=== PATIENT | male | born 1950 | race Caucasian/White ===

== ENCOUNTER → 2017-03-09 12:50 | Outpatient (CLI) | payer BC, MEDICARE, SELFPAY ==
--- NOTE | 2017-03-09 12:53 | CT_ITS ---
STUDY: CT PELVIS WITH CONTRAST REASON FOR EXAM: Male, 66 years old. History of prostate cancer. This is a radiation treatment planning examination. Supine and prone imaging was obtained. RADIATION DOSAGE (If Supplied By Facility): CTDIvol = ( 24.22 ) mGy, DLP = ( 1976.98 ) mGycm TECHNIQUE: Transaxial imaging of the pelvis was performed without oral contrast. 100CC ml of Isovue 300 contrast was administered intravenously. Individualized dose optimization techniques were used for this CT. COMPARISON: Comparison is made with prior study dated January 09, 2017. FINDINGS: Normal urinary bladder. Metallic radiation seeds are seen within the prostate. Bilateral hydroceles larger on the left side. There is evidence of bilateral parapelvic renal cysts. Normal visualized small intestine. Normal visualized colon. There is no pelvic fluid. There is no pelvic lymphadenopathy or mass lesion. There is diffuse atherosclerotic calcification of the pelvic arteries. There is a 1.1 cm soft tissue nodule in the subcutaneous tissues in the left mid abdomen lateral to the umbilicus. There are degenerative changes of the visualized lumbar spine. CT/CT Pelvis W/WO Cont Therapy IMPRESSION: Metallic radiation seeds are seen within the prostate. Bilateral parapelvic renal cysts. Bilateral hydroceles larger on the left. Electronically Signed: Hugo Quintero MD at 15:33 EST Tel [phone], Service support ,
== END ==
PROVIDERS: Visit Provider Radiology Radiation Oncology
DX: C61 Malignant neoplasm of prostate (principal)
CPT/HCPCS: 51600; 72194; Q9965; Q9967

== ENCOUNTER → 2017-03-17 11:19 | Outpatient (CLI) | payer BC, MEDICARE, SELFPAY ==
[2017-03-17 12:20] LABS: Absolute Lymphocyte Count 1.89 X10^3/ul (0.83-4.51); Absolute Neutrophil Count 2.9 X10^3/uL (2.0-7.7); Basophil# 0.03 X10^3/uL; Basophil% 0.5 % (0-1); Eosinophil# 0.21 X10^3/uL; Eosinophils% 3.6 % (0-5); Hematocrit 38.2 % (40-54); Hemoglobin 13.6 g/dl (13.0-16.5); Lymphocyte # 1.89 X10^3/ul (4.0); Mean Corp Hgb Conc 35.6 g/gl (32-36); Mean Corpuscular Hgb 31.1 pg (27.0-32.0); Mean Corpuscular Volume 87.4 fL (80-94); Mean Platelet Vol. 10.2 fl (6.2-12.0); Monocyte# 0.87 X10^3/uL; Monocyte% 14.7 % (0-10); Platelet Count 177 K/mm3 (150-450); RBC Distribution Width CV 12.9 % (11.6-14.6); RBC Distribution Width SD 40.3 fl (35.1-43.9); Red Blood Count 4.37 M/mm3 (4.6-6.2); White Blood Count 5.9 K/mm3 (4.4-11.0)
[2017-03-17 12:40] LABS: POSITIVE COUNT NO; POSITIVE DIFFERENTIAL NO; POSITIVE MORPHOLOGY NO
== END ==
PROVIDERS: Visit Provider Radiology Radiation Oncology
DX: C61 Malignant neoplasm of prostate (principal)
CPT/HCPCS: 36415; 85025

== ENCOUNTER → 2017-04-04 11:12 | Outpatient (CLI) | payer BC, MEDICARE, SELFPAY ==
[2017-04-04 12:08] LABS: Absolute Lymphocyte Count 1.53 X10^3/ul (0.83-4.51); Absolute Neutrophil Count 3.1 X10^3/uL (2.0-7.7); Basophil# 0.04 X10^3/uL; Basophil% 0.7 % (0-1); Eosinophil# 0.24 X10^3/uL; Eosinophils% 4.2 % (0-5); Hematocrit 36.8 % (40-54); Hemoglobin 13.2 g/dl (13.0-16.5); Lymphocyte # 1.53 X10^3/ul (4.0); Lymphocyte % 26.8 % (19-41); Mean Corp Hgb Conc 35.9 g/gl (32-36); Mean Corpuscular Hgb 31.2 pg (27.0-32.0); Mean Platelet Vol. 9.9 fl (6.2-12.0); Monocyte# 0.82 X10^3/uL; Monocyte% 14.4 % (0-10); Neutrophil # 3.07 X10^3/uL (2.7-7.7); Neutrophil % 53.7 % (47-70); Platelet Count 164 K/mm3 (150-450); RBC Distribution Width CV 12.9 % (11.6-14.6); RBC Distribution Width SD 39.6 fl (35.1-43.9); Red Blood Count 4.23 M/mm3 (4.6-6.2); White Blood Count 5.7 K/mm3 (4.4-11.0)
[2017-04-04 12:22] LABS: POSITIVE COUNT NO; POSITIVE DIFFERENTIAL NO; POSITIVE MORPHOLOGY NO
== END ==
PROVIDERS: Visit Provider Radiology Radiation Oncology
DX: C61 Malignant neoplasm of prostate (principal)
CPT/HCPCS: 36415; 85025

== ENCOUNTER → 2017-04-25 09:59 | Outpatient (CLI) | payer BC, MEDICARE, SELFPAY ==
[2017-04-25 12:06] LABS: Absolute Lymphocyte Count 1.12 X10^3/ul (0.83-4.51); Absolute Neutrophil Count 4.3 X10^3/uL (2.0-7.7); Basophil# 0.01 X10^3/uL; Basophil% 0.2 % (0-1); Eosinophil# 0.02 X10^3/uL; Eosinophils% 0.3 % (0-5); Hematocrit 36.2 % (40-54); Hemoglobin 13.1 g/dl (13.0-16.5); Lymphocyte # 1.12 X10^3/ul (4.0); Lymphocyte % 18.8 % (19-41); Mean Corp Hgb Conc 36.2 g/gl (32-36); Mean Corpuscular Hgb 31.3 pg (27.0-32.0); Mean Corpuscular Volume 86.6 fL (80-94); Mean Platelet Vol. 9.7 fl (6.2-12.0); Monocyte# 0.54 X10^3/uL; Neutrophil # 4.27 X10^3/uL (2.7-7.7); Neutrophil % 71.5 % (47-70); Platelet Count 198 K/mm3 (150-450); RBC Distribution Width CV 12.5 % (11.6-14.6); RBC Distribution Width SD 38.6 fl (35.1-43.9); Red Blood Count 4.18 M/mm3 (4.6-6.2)
[2017-04-25 12:12] LABS: POSITIVE COUNT NO; POSITIVE DIFFERENTIAL NO; POSITIVE MORPHOLOGY NO
== END ==
PROVIDERS: Visit Provider Radiology Radiation Oncology
DX: C61 Malignant neoplasm of prostate (principal)
CPT/HCPCS: 36415; 85025

== ENCOUNTER → 2017-06-02 08:09 | Outpatient (CLI) | payer BC, MEDICARE, SELFPAY ==
[2017-06-02 10:05] LABS: Absolute Lymphocyte Count 1.49 X10^3/ul (0.83-4.51); Absolute Neutrophil Count 3.7 X10^3/uL (2.0-7.7); Basophil# 0.04 X10^3/uL; Basophil% 0.7 % (0-1); Eosinophil# 0.21 X10^3/uL; Eosinophils% 3.4 % (0-5); Hematocrit 38.9 % (40-54); Hemoglobin 13.8 g/dl (13.0-16.5); Lymphocyte # 1.49 X10^3/ul (4.0); Lymphocyte % 24.3 % (19-41); Mean Corp Hgb Conc 35.5 g/gl (32-36); Mean Corpuscular Hgb 31.4 pg (27.0-32.0); Mean Corpuscular Volume 88.4 fL (80-94); Mean Platelet Vol. 9.9 fl (6.2-12.0); Monocyte# 0.67 X10^3/uL; Monocyte% 10.9 % (0-10); Neutrophil # 3.72 X10^3/uL (2.7-7.7); Neutrophil % 60.5 % (47-70); Platelet Count 190 K/mm3 (150-450); RBC Distribution Width CV 12.9 % (11.6-14.6); RBC Distribution Width SD 40.8 fl (35.1-43.9); White Blood Count 6.1 K/mm3 (4.4-11.0)
[2017-06-02 10:07] LABS: POSITIVE COUNT NO; POSITIVE DIFFERENTIAL NO; POSITIVE MORPHOLOGY NO
[2017-06-02 10:30] LABS: ALB/GLOB Ratio 0.9 RATIO (0.9-2.4); AST(SGOT) 27 U/L (15-37); Alanine Aminotransfer ALT/SGPT 27 U/L (16-61); Albumin, Serum 3.5 g/dL (3.2-5.0); Alkaline Phosphatase 141 U/L (45-117); Anion Gap 8 (5-15); BUN 22 mg/dL (7-18); BUN/Creat Ratio 13.7 RATIO (10-20); Calcium,Total 8.9 mg/dL (8.5-10.1); Chloride 107 mmol/L (98-107); Creatinine, Serum 1.61 mg/dL (0.70-1.30); EST Glomerular Filtration Rate 46 mL/min (>60); Est Glom Filt Rate - Afr Amer 55 mL/min (>60); Globulin 3.8 g/dL (2.2-4.2); Glucose 88 mg/dL (74-106); Potassium 3.8 mmol/L (3.5-5.1); Protein, Total 7.3 g/dL (6.4-8.2); Sodium Level 142 mmol/L (136-145)
== END ==
PROVIDERS: Visit Provider Internal Medicine Rheumatology
DX: M05.70 Rheumatoid arthritis with rheumatoid factor of unspecified site without organ or systems involvement (principal); M81.0 Age-related osteoporosis without current pathological fracture; Z79.899 Other long term (current) drug therapy
CPT/HCPCS: 36415; 80053; 85025

== ENCOUNTER → 2017-11-02 10:20 | Outpatient (CLI) | payer BC, MEDICARE, SELFPAY ==
--- NOTE | 2017-11-02 10:26 | RAD_ITS ---
STUDY: X-RAY CHEST REASON FOR EXAM: Male, 67 years old. Pre-op TECHNIQUE: PA and lateral views of the chest. COMPARISON: 06/11/2007 FINDINGS: There is hyperinflation of the lungs consistent with chronic obstructive lung disease (COPD). Lungs are clear. There is no demonstrated pleural abnormality. Normal size heart. Normal mediastinum and corine. Normal visualized pulmonary arteries. Normal visualized aortic arch and descending thoracic aorta. Normal visualized thoracic spine. Prior left-sided rib fractures. There is no demonstrated abnormality of the visualized soft tissue structures of the upper abdomen. RAD/Chest PA and Lateral IMPRESSION: COPD without acute findings Electronically Signed: Darrel Araujo DO at 9:51 EDT Tel , Service support ,
[2017-11-02 12:03] LABS: Erythrocyte Sedimentation Rate 16 mm/hr (0-20)
[2017-11-02 12:11] LABS: Absolute Lymphocyte Count 1.52 X10^3/ul (0.83-4.51); Absolute Neutrophil Count 2.3 X10^3/uL (2.0-7.7); Basophil# 0.03 X10^3/uL; Basophil% 0.6 % (0-1); Eosinophil# 0.16 X10^3/uL; Eosinophils% 3.4 % (0-5); Hematocrit 36.6 % (40-54); Lymphocyte # 1.52 X10^3/ul (4.0); Lymphocyte % 32.1 % (19-41); Mean Corp Hgb Conc 35.5 g/gl (32-36); Mean Corpuscular Hgb 31.5 pg (27.0-32.0); Mean Corpuscular Volume 88.6 fL (80-94); Mean Platelet Vol. 10.4 fl (6.2-12.0); Monocyte% 14.8 % (0-10); Neutrophil # 2.33 X10^3/uL (2.7-7.7); Neutrophil % 49.1 % (47-70); Platelet Count 158 K/mm3 (150-450); RBC Distribution Width CV 12.8 % (11.6-14.6); RBC Distribution Width SD 40.7 fl (35.1-43.9); Red Blood Count 4.13 M/mm3 (4.6-6.2); White Blood Count 4.7 K/mm3 (4.4-11.0)
[2017-11-02 12:13] LABS: POSITIVE COUNT NO; POSITIVE DIFFERENTIAL NO; POSITIVE MORPHOLOGY NO
[2017-11-02 12:36] LABS: ALB/GLOB Ratio 0.8 RATIO (0.9-2.4); AST(SGOT) 30 U/L (15-37); Alanine Aminotransfer ALT/SGPT 36 U/L (16-61); Albumin, Serum 3.3 g/dL (3.2-5.0); Alkaline Phosphatase 179 U/L (45-117); Anion Gap 8 (5-15); BUN 20 mg/dL (7-18); BUN/Creat Ratio 14.4 RATIO (10-20); CRP < 2.90 mg/L (0.0-3.0); Chloride 107 mmol/L (98-107); Creatinine, Serum 1.39 mg/dL (0.70-1.30); EST Glomerular Filtration Rate 54 mL/min (>60); Est Glom Filt Rate - Afr Amer 65 mL/min (>60); Globulin 3.9 g/dL (2.2-4.2); Glucose 88 mg/dL (74-106); PSA,Total- Diagnostic 0.05 ng/mL (0.0-4.0); Potassium 4.2 mmol/L (3.5-5.1); Protein, Total 7.2 g/dL (6.4-8.2); Sodium Level 141 mmol/L (136-145)
== END ==
PROVIDERS: Family Provider Family Medicine; PCP Family Medicine; Visit Provider Urology
DX: Z01.818 Encounter for other preprocedural examination (principal)
CPT/HCPCS: 71046; 80053; 84153; 85025; 85652; 86140

== ENCOUNTER → 2017-11-20 08:32 | Outpatient (CLI) | payer BC, MEDICARE, SELFPAY ==
[2017-11-20 10:21] LABS: Absolute Lymphocyte Count 1.34 X10^3/ul (0.83-4.51); Basophil# 0.02 X10^3/uL; Basophil% 0.5 % (0-1); Eosinophil# 0.22 X10^3/uL; Eosinophils% 5.3 % (0-5); Hematocrit 36.3 % (40-54); Hemoglobin 12.4 g/dl (13.0-16.5); Lymphocyte # 1.34 X10^3/ul (4.0); Lymphocyte % 32.5 % (19-41); Mean Corp Hgb Conc 34.2 g/gl (32-36); Mean Corpuscular Hgb 30.5 pg (27.0-32.0); Mean Corpuscular Volume 89.4 fL (80-94); Monocyte# 0.53 X10^3/uL; Monocyte% 12.9 % (0-10); Neutrophil # 2.01 X10^3/uL (2.7-7.7); Neutrophil % 48.8 % (47-70); Platelet Count 153 K/mm3 (150-450); RBC Distribution Width CV 13.3 % (11.6-14.6); RBC Distribution Width SD 42.9 fl (35.1-43.9); Red Blood Count 4.06 M/mm3 (4.6-6.2); White Blood Count 4.1 K/mm3 (4.4-11.0)
[2017-11-20 10:28] LABS: POSITIVE COUNT NO; POSITIVE DIFFERENTIAL NO; POSITIVE MORPHOLOGY NO
[2017-11-20 10:35] LABS: ALB/GLOB Ratio 0.8 RATIO (0.9-2.4); AST(SGOT) 28 U/L (15-37); Alanine Aminotransfer ALT/SGPT 31 U/L (16-61); Albumin, Serum 3.2 g/dL (3.2-5.0); Alkaline Phosphatase 195 U/L (45-117); Anion Gap 6 (5-15); BUN 25 mg/dL (7-18); BUN/Creat Ratio 17.5 RATIO (10-20); Chloride 108 mmol/L (98-107); Creatinine, Serum 1.43 mg/dL (0.70-1.30); EST Glomerular Filtration Rate 52 mL/min (>60); Est Glom Filt Rate - Afr Amer 63 mL/min (>60); Globulin 3.9 g/dL (2.2-4.2); Glucose 85 mg/dL (74-106); Protein, Total 7.1 g/dL (6.4-8.2); Sodium Level 141 mmol/L (136-145)
== END ==
PROVIDERS: Family Provider Family Medicine; PCP Family Medicine; Referring Provider Internal Medicine Rheumatology; Visit Provider Internal Medicine Rheumatology
DX: M05.70 Rheumatoid arthritis with rheumatoid factor of unspecified site without organ or systems involvement (principal); Z79.899 Other long term (current) drug therapy; M81.0 Age-related osteoporosis without current pathological fracture
CPT/HCPCS: 36415; 80053; 85025

== ENCOUNTER 2017-11-28 11:27 | Day surgery (SDC) | payer BC, MEDICARE, SELFPAY ==
[2017-11-28 11:48] VITALS: BP 173/93; PULSE 59; RESP 16; TEMP 36.3; O2SAT 100; BMI 22.0
[2017-11-28] MEDS: Bupivacaine Mpf 0.5% 30 ML VIAL (13:02)
--- NOTE | 2017-11-28 13:15 | RAD_ITS ---
STUDY: X-RAY - LEFT FOOT CLINICAL: Male, 67 years old. Hammertoe repair. TECHNIQUE: Fluoroscopic assistance was provided to Dr. Shi. 2 fluoroscopic spot view(s) of the toes are submitted. COMPARISON: None. FINDINGS: Normal heads of the second and third metatarsi. The other metatarsals are not included in the [id number]. There is a mild hallux valgus deformity. Poorly visualized tibial and fibular sesamoid bones. Normal interphalangeal joint of the great toe. Normal phalanges of the great toe. Normal second through fourth metatarsophalangeal joints. The fifth is not included in the [id number]. The patient has undergone fusion of the phalanges of the second and third toes. Longitudinal screws pass from the distal phalanges through the mid phalanges into the proximal phalanges. The interphalangeal joint spaces are severely narrowed. There is mild chronic-appearing deformity of the head of the fourth proximal phalanx. The interphalangeal joints and phalanges of the fourth and fifth toes are otherwise grossly unremarkable. The soft tissue structures are unremarkable. RAD/Foot min 3 Views IMPRESSION: Status post fusion of the phalanges of the second and third toes. Electronically Signed: Mark Patel MD at 19:04 EDT , Service support ,
[2017-11-28 14:31] VITALS: BP 114/55; BP 173/93; PULSE 60; RESP 16; TEMP 36.2; O2SAT 95
[2017-11-28 14:36] VITALS: BP 107/89; BP 173/93; PULSE 64; RESP 16; O2SAT 98
[2017-11-28 14:41] VITALS: BP 112/56; BP 173/93; PULSE 58; RESP 16; O2SAT 97
--- NOTE | 2017-11-28 14:41 | DCINST_ITS ---
Discharge Diet: No Restrictions Discharge Activity: May Shower - with shower bag only Weight Bearing Status: Partial weight bearing - heel partial weightbear with surgical shoe in place Keep extremity elevated above heart level: Right Leg Call your doctor if your incision/area has: Continuous Slow Oozing, Sudden Increased Bleeding, Increased Pain/ Swelling, Increased Redness, Foul Smelling Discharge, Swelling at the incision site Call your doctor if you observe: Fever of 101 or Higher, Numbness or Tingling, Calf discomfort, Uncontrolled pain Cleanse incision/area with: Keep Dressing Clean & Dry Allergies/Adverse Reactions: Allergies codeine Adverse Reaction (Verified 11/27/17 10:16) Nausea erythromycin base Adverse Reaction (Verified 11/28/17 11:51) Nausea Penicillins Adverse Reaction (Verified 11/27/17 10:16) Nausea Medications to take at Discharge Etanercept [Enbrel] 25 mg SQ QWEEK 11/27/17 Primary Care Physician: Care Physician,No Primary [Primary Care Provider] - Test Results: Test results from this visit will be discussed in further detail at your follow- up appointment, if applicable. Please Follow Up With: Ghazala Shi DPM When: 1 week. Call [phone] if questions or concerns Proposed Discharge Date: 11/28/17
--- NOTE | 2017-11-28 14:45 | OP.PN_ITS ---
Problem List (1) Hammertoe of left foot Status: Chronic (2) Left foot pain Status: Chronic Immediate Post-Op Note Date of Procedure: 11/28/17 - Fiberglass Bonding Machine Tender: Yamil Duke, PGY2. Surgeon: Ghazala Shi DPM Primary Surgeon/Physician: Ghazala Shi DPM plate slitter and inspector: none Pre-Operative Diagnosis: painful hammer toe; 2nd left. painful hammer toe; 3rd left Post-Operative Diagnosis: painful hammer toe; 2nd left. painful hammer toe; 3rd left Surgery/Procedure Performed:: -hammer toe correction 2nd proximal and distal in terphalangeal joints including arthrodesis with internal fixation, left foot. - hammer toe correction 3rd proximal and distal interphalangeal joints including arthrodesis with internal fixation, left foot Description of Surgical Findings:: Hemostasis: Left ankle pneumatic well-padded tourniquet, 250 mmHg, 57 minutes Materials: 2 x 28 mm Arthrex micro FT compression screws, 3-0 Vicryl, 5-0 nylon Complications: None Specimens: None See detailed operative report for full details The patient tolerated the procedure and anesthesia well. He was transported to the PACU with vital signs stable and vascular status intact to left lower extremity. Postoperative x-rays were reviewed as noted in the operation report. He will be discharged home. All orders were entered electronically. Estimated Blood Loss: < 50 mL Specimen's removed: none Type of Anesthesia:: Local MAC - Preoperative injection: 1:1 mixture of 1% lidocaine plain 0.5% Marcaine plain administered in second and third ray block fashion, 10 mL - Admit VTE Documentation VTE Present on Admission: No VTE Mechan Device Prophylaxis: SCD's VTE Pharm Prophylaxis ordered?: No Reason prophylaxis not ordered:: Treatment Not Indicated
[2017-11-28 14:46] VITALS: BP 119/53; BP 173/93; PULSE 58; RESP 16; TEMP 36.2; O2SAT 100
--- NOTE | 2017-11-28 14:55 | PCM.OPRPT ---
Problem List (1) Hammertoe of left foot Status: Chronic (2) Left foot pain Status: Chronic Report of Operation Date of Procedure: 11/28/17 - Oncology Rep Specialist: Yamil Duke, MARYANNY2. Surgeon: Ghazala Shi DPM Pre-Operative Diagnosis: painful hammer toe; 2nd left. painful hammer toe; 3rd left Post-Operative Diagnosis: painful hammer toe; 2nd left. painful hammer toe; 3rd left Surgery/Procedure Performed:: -hammer toe correction 2nd proximal and distal interphalangeal joints including arthrodesis with internal fixation, left foot. -hammer toe correction 3rd proximal and distal interphalangeal joints including arthrodesis with internal fixation, left foot Description of Surgical Findings:: Hemostasis: Left ankle pneumatic well-padded tourniquet, 250 mmHg, 57 minutes Materials: 2 x 28 mm Arthrex micro FT compression screws, 3-0 Vicryl, 5-0 nylon Complications: None Specimens: None wildlife refuge manager: none Type of Anesthesia:: Local MAC - Preoperative injection: 1:1 mixture of 1% lidocaine plain 0.5% Marcaine plain administered in second and third ray block fashion, 10 mL Specimen's removed: none Estimated Blood Loss (mL): < 50 mL Description of Procedure: Indications: This 67-year-old male with significant past medical history of rheumatoid arthritis continues to complain of left painful second and third hammertoes. This is causing daily difficulty with inability to complete daily activities including walking. He has tried conservative care including change in shoes, shoe insoles, rheumatoid arthritis medications, toe pads and spacers. He is failed conservative care and is seeking surgical intervention at this time. He has some other hammertoes corrected with great success. The preoperative history and physical performed by Dr. Goncalves was reviewed as well as his preoperative diagnostic data including CMP, CBC, EKG and chest x-ray, ESR and C-reactive protein. Clearance was obtained. His pre, renee, and post operative plan was communicated with his soda worker as well and his anti-rheumatic medications were held two week prior to the procedure to optimize healing. This will be held until complete healing is noted. The preoperative indications, planned procedure, possible benefits, risks, complications, and anticipated healing time is were discussed in detail the patient. He understands elects proceed with surgery at this time. Informed surgical consent and surgical limb were signed. No guarantees are made. He understands complications may include but are not limited to the following: Infection, scarring, pain, floating toe, loss of toe, chronic pain, loss of limb function or life, need for revisional surgery. I answered all of his questions. Procedure in detail: The patient was transported to the operating room via cart and placed on the operating table in supine position. Final verification the patient, surgery, and limb designation was performed via the timeout procedure. A well-padded pneumatic left ankle tourniquet was placed. Preoperative local anesthetic was administered by the podiatry team as noted. MAC anesthesia was initiated by the anesthesia team. The left lower extremity was prepped and draped in the usual aseptic manner. An Esmarch bandage was utilized to exsanguinate the left limb and the tourniquet was inflated at this time. Surgery began in the following manner: Attention was first directed to the left foot in which a linear incision was made over the second proximal interphalangeal joint and a semi-elliptical incision was made over the distal interphalangeal joint through the skin only. Care was taken to identify, protect, and retract all neurovascular structures at this point and throughout the remainder of the surgery. Dissection was performed down to the tendon layer. A tenotomy was made in a transverse manner at each joint level and with a fresh 15 blade to enter the distal and proximal interphalanteal joints. The collateral ligaments were released from the proximal and middle phalangeal heads to gain good exposure. Both joint edges were resected with a sagittal saw in preparation for the arthrodesis past the subchondral bone layer. Next a guidewire was retrograded across both joints and the joint arthrodesis surfaces were aligned in a rectus position and this was confirmed with intraoperative fluoroscopy. Reaming was performed and the Arthrex FT compression screw was applied utilizing proper technique. Proper positioning of the screw and trajectory and [id number] approximation was confirmed intraoperatively. Solid fixation was achieved. Next, the exact same procedure was performed to the left third toe in the same manner with the exact same findings. Saline irrigation was performed and the released extensor tendons were trimmed and reapproximated over the arthrodesis sites with Vicryl. The tourniquet was deflated at this time and brisk capillary refill time was noted to all digits of the left foot. Gentle skin closure was next performed with deep 3-0 Vicryl and the skin was reapproximated with 5-0 nylon utilizing simple and horizontal mattress techniques. Rectus position of the toes were maintained. After procedure: The patient tolerated the procedure and anesthesia well. He was transported to the PACU with vital signs stable and vascular status intact to the left lower extremity. He will be discharged home upon continued stability. Postoperative x-rays were reviewed prior to leaving the operating room with arthrodesis of both the proximal and distal interphalangeal joints of the left second and third toe with hardware intact and the toes in rectus position. No acute injuries were noted. He was provided with postoperative pain medicine, Onyx, and advised on safe and proper use. He was advised to ice and elevate for pain and inflammation management. He was advised to keep pressure off of the surgery site and use a surgical shoe that was previously dispensed. He is permitted to apply slight pressure to the heel for transfers and minimal walking. He was advised to keep his dressing clean, dry, and intact. He will follow-up with me at the [facility] in 1 week or call sooner if he has any questions or concerns. Ghazala Shi DPM, [facility]
--- NOTE | 2017-11-28 15:00 | RAD_ITS ---
STUDY: X-RAY - LEFT FOOT CLINICAL: Male, 67 years old. Postop TECHNIQUE: 3 view(s) of the foot. COMPARISON: None. FINDINGS: There are fixation screws spanning the phalanges of the second and third toes. The hardware is intact and alignment is satisfactory. There is no acute fracture or dislocation. There are mild degenerative changes. RAD/Foot min 3 Views IMPRESSION: Fixation screws spanning the phalanges of the second and third toes with intact hardware in satisfactory alignment. No fracture or dislocation. Electronically Signed: David Childers, at 16:01 EDT Tel , Service support ,
[2017-11-28 15:31] VITALS: BP 173/93
== END 2017-11-28 15:32 | disposition home or self-care (01) ==
LOC: SDC 11:27 → AC 11:28
PROVIDERS: Referring Provider Podiatrist; Visit Provider Podiatrist
PROC: (CPT 28285; principal; 2017-11-28 12:45)
DX: M20.42 Other hammer toe(s) (acquired), left foot (principal); M06.9 Rheumatoid arthritis, unspecified; Z79.899 Other long term (current) drug therapy; Z92.3 Personal history of irradiation; Z85.46 Personal history of malignant neoplasm of prostate; Z87.891 Personal history of nicotine dependence
CPT/HCPCS: 01480; 28285 ×2; 73630; 76000; C1713; J7120

== ENCOUNTER → 2018-02-15 11:05 | Outpatient (CLI) | payer BC, MEDICARE, SELFPAY ==
[2018-02-15 12:26] LABS: PSA,Total- Diagnostic 0.03 ng/mL (0.0-4.0)
== END ==
PROVIDERS: Referring Provider Urology; Visit Provider Urology
DX: C61 Malignant neoplasm of prostate (principal)
CPT/HCPCS: 36415; 84153

== ENCOUNTER → 2018-05-15 10:22 | Outpatient (CLI) | payer BC, MEDICARE, SELFPAY ==
[2018-05-15 12:16] LABS: Absolute Lymphocyte Count 1.64 X10^3/ul (0.83-4.51); Absolute Neutrophil Count 2.9 X10^3/uL (2.0-7.7); Basophil# 0.04 X10^3/uL; Basophil% 0.7 % (0-1); Eosinophil# 0.25 X10^3/uL; Eosinophils% 4.5 % (0-5); Hematocrit 35.4 % (40-54); Hemoglobin 12.2 g/dl (13.0-16.5); Lymphocyte # 1.64 X10^3/ul (4.0); Lymphocyte % 29.3 % (19-41); Mean Corp Hgb Conc 34.5 g/gl (32-36); Mean Corpuscular Hgb 30.5 pg (27.0-32.0); Mean Corpuscular Volume 88.5 fL (80-94); Mean Platelet Vol. 9.7 fl (6.2-12.0); Monocyte# 0.75 X10^3/uL; Monocyte% 13.4 % (0-10); Neutrophil % 51.9 % (47-70); Platelet Count 181 K/mm3 (150-450); RBC Distribution Width CV 13.7 % (11.6-14.6); RBC Distribution Width SD 44.2 fl (35.1-43.9); White Blood Count 5.6 K/mm3 (4.4-11.0)
[2018-05-15 12:20] LABS: POSITIVE COUNT NO; POSITIVE DIFFERENTIAL NO; POSITIVE MORPHOLOGY NO
[2018-05-15 12:39] LABS: ALB/GLOB Ratio 0.8 RATIO (0.9-2.4); AST(SGOT) 29 U/L (15-37); Alanine Aminotransfer ALT/SGPT 30 U/L (16-61); Albumin, Serum 3.2 g/dL (3.2-5.0); Alkaline Phosphatase 156 U/L (45-117); Anion Gap 7 (5-15); BUN 14 mg/dL (7-18); BUN/Creat Ratio 9.7 RATIO (10-20); Chloride 107 mmol/L (98-107); Creatinine, Serum 1.45 mg/dL (0.70-1.30); EST Glomerular Filtration Rate 51 mL/min (>60); Est Glom Filt Rate - Afr Amer 62 mL/min (>60); Globulin 3.8 g/dL (2.2-4.2); Glucose 91 mg/dL (74-106); PSA,Total- Diagnostic 0.01 ng/mL (0.0-4.0); Potassium 4.1 mmol/L (3.5-5.1); Sodium Level 139 mmol/L (136-145)
== END ==
PROVIDERS: Referring Provider Internal Medicine Rheumatology; Visit Provider Internal Medicine Rheumatology
DX: M05.70 Rheumatoid arthritis with rheumatoid factor of unspecified site without organ or systems involvement (principal); M81.0 Age-related osteoporosis without current pathological fracture; Z79.899 Other long term (current) drug therapy; C61 Malignant neoplasm of prostate
CPT/HCPCS: 36415; 80053; 84153; 85025

== ENCOUNTER → 2018-08-24 10:36 | Outpatient (CLI) | payer BC, MEDICARE, SELFPAY ==
[2018-08-24 13:20] LABS: PSA,Total- Diagnostic 0.01 ng/mL (0.0-4.0)
== END ==
PROVIDERS: Referring Provider Urology; Visit Provider Urology
DX: C61 Malignant neoplasm of prostate (principal)
CPT/HCPCS: 36415; 84153

== ENCOUNTER → 2018-11-29 14:11 | Outpatient (CLI) | payer BC, MEDICARE, SELFPAY ==
[2018-11-29 16:01] LABS: PSA,Total- Diagnostic < 0.01 ng/mL (0.0-4.0)
== END ==
PROVIDERS: Referring Provider Urology; Visit Provider Urology
DX: C61 Malignant neoplasm of prostate (principal)
CPT/HCPCS: 36415; 84153

== ENCOUNTER → 2018-12-21 11:22 | Outpatient (CLI) | payer BC, MEDICARE, SELFPAY ==
[2018-12-21 12:45] LABS: Absolute Lymphocyte Count 1.87 X10^3/uL (0.83-4.51); Absolute Neutrophil Count 2.4 X10^3/uL (2.0-7.7); Basophil# 0.06 X10^3/uL; Basophil% 1.2 % (0-1); Eosinophil# 0.39 X10^3/uL; Eosinophils% 7.6 % (0-5); Hematocrit 37.6 % (40-54); Hemoglobin 12.8 g/dL (13.0-16.5); Lymphocyte # 1.87 X10^3/ul (4.0); Lymphocyte % 36.2 % (19-41); Mean Platelet Vol. 9.6 fl (6.2-12.0); Monocyte# 0.46 X10^3/uL; Monocyte% 8.9 % (0-10); NRBC Flagged by Analyzer 0 % (0-5); Neutrophil # 2.38 X10^3/uL (2.7-7.7); Neutrophil % 46.1 % (47-70); Platelet Count 192 K/mm3 (150-450); RBC Distribution Width CV 13.1 % (11.6-14.6); RBC Distribution Width SD 42.9 fl (35.1-43.9); Red Blood Count 4.13 M/mm3 (4.6-6.2); White Blood Count 5.2 K/mm3 (4.4-11.0)
[2018-12-21 13:12] LABS: ALB/GLOB Ratio 0.8 RATIO (0.9-2.4); AST(SGOT) 31 U/L (15-37); Alanine Aminotransfer ALT/SGPT 29 U/L (16-61); Albumin, Serum 3.2 g/dL (3.2-5.0); Alkaline Phosphatase 178 U/L (45-117); Anion Gap 6 (5-15); BUN 18 mg/dL (7-18); BUN/Creat Ratio 12.9 RATIO (10-20); Calcium,Total 8.7 mg/dL (8.5-10.1); Chloride 106 mmol/L (98-107); EST Glomerular Filtration Rate 53 mL/min (>60); Est Glom Filt Rate - Afr Amer 65 mL/min (>60); Globulin 3.8 g/dL (2.2-4.2); Glucose 90 mg/dL (74-106); Potassium 4.4 mmol/L (3.5-5.1); Sodium Level 139 mmol/L (136-145)
== END ==
PROVIDERS: Referring Provider Internal Medicine Rheumatology; Visit Provider Internal Medicine Rheumatology
DX: M05.70 Rheumatoid arthritis with rheumatoid factor of unspecified site without organ or systems involvement (principal); M81.0 Age-related osteoporosis without current pathological fracture; Z79.899 Other long term (current) drug therapy
CPT/HCPCS: 36415; 80053; 85025

== ENCOUNTER → 2019-06-10 14:00 | Outpatient (CLI) | payer BC, MEDICARE, SELFPAY ==
[2019-06-10 15:02] LABS: Absolute Lymphocyte Count 2.15 X10^3/uL (0.83-4.51); Absolute Neutrophil Count 3.8 X10^3/uL (2.0-7.7); Basophil# 0.04 X10^3/uL; Basophil% 0.6 % (0-1); Eosinophil# 0.15 X10^3/uL; Eosinophils% 2.2 % (0-5); Hematocrit 36.4 % (40-54); Hemoglobin 12.7 g/dL (13.0-16.5); Lymphocyte # 2.15 X10^3/ul (4.0); Mean Corp Hgb Conc 34.9 g/dL (32-36); Mean Corpuscular Hgb 30.2 pg (27.0-32.0); Mean Corpuscular Volume 86.7 fL (80-94); Mean Platelet Vol. 9.8 fl (6.2-12.0); Monocyte# 0.59 X10^3/uL; Monocyte% 8.8 % (0-10); NRBC Flagged by Analyzer 0 % (0-5); Neutrophil # 3.76 X10^3/uL (2.7-7.7); Neutrophil % 56.1 % (47-70); Platelet Count 200 K/mm3 (150-450); RBC Distribution Width CV 12.3 % (11.6-14.6); RBC Distribution Width SD 38.9 fl (35.1-43.9); White Blood Count 6.7 K/mm3 (4.4-11.0)
[2019-06-10 15:22] LABS: ALB/GLOB Ratio 0.9 RATIO (0.9-2.4); AST(SGOT) 21 U/L (15-37); Alanine Aminotransfer ALT/SGPT 22 U/L (16-61); Albumin, Serum 3.3 g/dL (3.2-5.0); Alkaline Phosphatase 162 U/L (45-117); Anion Gap 7 (5-15); BUN 22 mg/dL (7-18); BUN/Creat Ratio 15.9 RATIO (10-20); Calcium,Total 8.7 mg/dL (8.5-10.1); Chloride 107 mmol/L (98-107); Creatinine, Serum 1.38 mg/dL (0.70-1.30); EST Glomerular Filtration Rate 54 mL/min (>60); Est Glom Filt Rate - Afr Amer 66 mL/min (>60); Globulin 3.8 g/dL (2.2-4.2); Glucose 74 mg/dL (74-106); Potassium 3.7 mmol/L (3.5-5.1); Protein, Total 7.1 g/dL (6.4-8.2); Sodium Level 139 mmol/L (136-145)
== END ==
PROVIDERS: Referring Provider Internal Medicine Rheumatology; Visit Provider Internal Medicine Rheumatology
DX: M05.70 Rheumatoid arthritis with rheumatoid factor of unspecified site without organ or systems involvement (principal); M81.0 Age-related osteoporosis without current pathological fracture; Z79.899 Other long term (current) drug therapy
CPT/HCPCS: 36415; 80053; 85025

== ENCOUNTER → 2019-08-22 10:39 | Outpatient (CLI) | payer BC, MEDICARE, SELFPAY ==
[2019-08-22 13:33] LABS: PSA,Total- Diagnostic < 0.01 ng/mL (0.0-4.0)
== END ==
PROVIDERS: Referring Provider Urology; Visit Provider Urology
DX: C61 Malignant neoplasm of prostate (principal)
CPT/HCPCS: 36415; 84153

== ENCOUNTER → 2019-12-09 15:16 | Outpatient (CLI) | payer BC, MEDICARE, SELFPAY ==
[2019-12-09 18:09] LABS: Absolute Lymphocyte Count 1.64 X10^3/uL (0.83-4.51); Absolute Neutrophil Count 2.6 X10^3/uL (2.0-7.7); Basophil# 0.03 X10^3/uL; Basophil% 0.6 % (0-1); Eosinophil# 0.24 X10^3/uL; Eosinophils% 4.7 % (0-5); Hemoglobin 12.4 g/dL (13.0-16.5); Lymphocyte # 1.64 X10^3/ul (4.0); Lymphocyte % 31.9 % (19-41); Mean Corp Hgb Conc 34.4 g/dL (32-36); Mean Corpuscular Hgb 30.8 pg (27.0-32.0); Mean Corpuscular Volume 89.3 fL (80-94); Mean Platelet Vol. 10.4 fl (6.2-12.0); Monocyte# 0.59 X10^3/uL; Monocyte% 11.5 % (0-10); NRBC Flagged by Analyzer 0 % (0-5); Neutrophil # 2.63 X10^3/uL (2.7-7.7); Neutrophil % 51.1 % (47-70); Platelet Count 186 K/mm3 (150-450); RBC Distribution Width SD 42.4 fl (35.1-43.9); Red Blood Count 4.03 M/mm3 (4.6-6.2); White Blood Count 5.1 K/mm3 (4.4-11.0)
[2019-12-09 18:43] LABS: ALB/GLOB Ratio 0.9 RATIO (0.9-2.4); AST(SGOT) 25 U/L (15-37); Alanine Aminotransfer ALT/SGPT 29 U/L (16-61); Albumin, Serum 3.2 g/dL (3.2-5.0); Alkaline Phosphatase 182 U/L (45-117); Anion Gap 5 (5-15); BUN 22 mg/dL (7-18); BUN/Creat Ratio 15.5 RATIO (10-20); Calcium,Total 8.7 mg/dL (8.5-10.1); Chloride 110 mmol/L (98-107); Creatinine, Serum 1.42 mg/dL (0.70-1.30); EST Glomerular Filtration Rate 52 mL/min (>60); Est Glom Filt Rate - Afr Amer 63 mL/min (>60); Globulin 3.5 g/dL (2.2-4.2); Glucose 99 mg/dL (74-106); Potassium 4.1 mmol/L (3.5-5.1); Protein, Total 6.7 g/dL (6.4-8.2); Sodium Level 142 mmol/L (136-145)
== END ==
PROVIDERS: Referring Provider Internal Medicine Rheumatology; Visit Provider Internal Medicine Rheumatology
DX: M05.70 Rheumatoid arthritis with rheumatoid factor of unspecified site without organ or systems involvement (principal); M81.0 Age-related osteoporosis without current pathological fracture; Z79.899 Other long term (current) drug therapy
CPT/HCPCS: 36415; 80053; 85025

== ENCOUNTER → 2020-05-08 10:29 | Outpatient (CLI) | payer BC, MEDICARE, SELFPAY ==
[2020-05-08 12:26] LABS: PSA,Total- Diagnostic 0.05 ng/mL (0.0-4.0)
== END ==
PROVIDERS: Referring Provider Urology; Visit Provider Urology
DX: C61 Malignant neoplasm of prostate (principal)
CPT/HCPCS: 36415; 84153

== ENCOUNTER → 2020-06-10 09:41 | Outpatient (CLI) | payer BC, MEDICARE, SELFPAY ==
[2020-06-10 15:14] LABS: Absolute Lymphocyte Count 1.64 X10^3/uL (0.83-4.51); Absolute Neutrophil Count 2.2 X10^3/uL (2.0-7.7); Basophil# 0.03 X10^3/uL; Basophil% 0.6 % (0-1); Eosinophil# 0.14 X10^3/uL; Hemoglobin 13.3 g/dL (13.0-16.5); Lymphocyte # 1.64 X10^3/ul (0.83-4.51); Lymphocyte % 35.3 % (19-41); Mean Corp Hgb Conc 33.3 g/dL (32-36); Mean Corpuscular Hgb 30.2 pg (27.0-32.0); Mean Corpuscular Volume 90.7 fL (80-94); Mean Platelet Vol. 9.4 fl (6.2-12.0); Monocyte# 0.62 X10^3/uL; Monocyte% 13.3 % (0-10); NRBC Flagged by Analyzer 0 % (0-5); Neutrophil # 2.21 X10^3/uL (2.7-7.7); Neutrophil % 47.6 % (47-70); Platelet Count 193 K/mm3 (150-450); RBC Distribution Width CV 13.7 % (11.6-14.6); Red Blood Count 4.41 M/mm3 (4.6-6.2); White Blood Count 4.7 K/mm3 (4.4-11.0)
[2020-06-10 15:46] LABS: ALB/GLOB Ratio 0.9 RATIO (0.9-2.4); AST(SGOT) 29 U/L (15-37); Alanine Aminotransfer ALT/SGPT 32 U/L (16-61); Albumin, Serum 3.4 g/dL (3.2-5.0); Alkaline Phosphatase 165 U/L (45-117); Anion Gap 4 (5-15); BUN 19 mg/dL (7-18); Calcium,Total 8.8 mg/dL (8.5-10.1); Chloride 108 mmol/L (98-107); Creatinine, Serum 1.46 mg/dL (0.70-1.30); EST Glomerular Filtration Rate 51 mL/min (>60); Est Glom Filt Rate - Afr Amer 61 mL/min (>60); Globulin 3.8 g/dL (2.2-4.2); Glucose 90 mg/dL (74-106); Potassium 4.4 mmol/L (3.5-5.1); Protein, Total 7.2 g/dL (6.4-8.2); Sodium Level 137 mmol/L (136-145)
== END ==
PROVIDERS: PCP Family Medicine; Referring Provider Family Medicine; Visit Provider Family Medicine
DX: Z01.818 Encounter for other preprocedural examination (principal)
CPT/HCPCS: 36415; 80053; 85025

== ENCOUNTER 2020-06-26 05:56 | Day surgery (SDC) | payer BC, MEDICARE, SELFPAY ==
[2020-06-26] VITALS (9 sets, daily range): BP systolic 116–187; BP diastolic 38–87; PULSE 64–74; RESP 16; TEMP 36–36.2; O2SAT 95–99; BMI 23.0
[2020-06-26] MEDS: Lactated Ringers 1,000 ML 100 ML IV ×2 (06:41→09:30)
--- NOTE | 2020-06-26 07:38 | RAD_ITS ---
STUDY: X-RAY - LEFT FOOT CLINICAL: Male, 69 years old. BUNIONECTOMY INCLUDING ARTHRODESIS OF FIRST METATARSAL TECHNIQUE: 3 view(s) of the foot. COMPARISON: 11/28/2017 FINDINGS: Fluoroscopy the left foot was utilized and operating room during midfoot arthrodesis and 8 images are somewhat limited for interpretation.. RAD/Foot min 3 Views IMPRESSION: Fluoroscopy during midfoot arthrodesis. Electronically Signed: Jose Zamudio MD at 16:50 EDT Tel , Service support ,
[2020-06-26] MEDS: Bupivacaine Mpf 0.5% 30 ML VIAL (07:45)
[2020-06-26] MEDS: Lidocaine 1% (30 ml sdv) 30 ML Vial (07:45)
--- NOTE | 2020-06-26 11:04 | OP.PCM_ITS ---
Problems Associated Problem List Diagnoses (1) Left foot pain: (2) Hallux valgus (acquired), left foot: Report of Operation Date of Procedure: 06/26/20 Pre-Operative Diagnosis: Symptomatic hallux abductovalgus, left foot Post-Operative Diagnosis: Symptomatic hallux abductovalgus, left foot Surgery/Procedure Performed:: Left foot bunionectomy including arthrodesis of the first metatarsal cuneiform joint with internal fixation Description of Surgical Findings:: Hemostasis: Well-padded pneumatic left thigh tourniquet, 300 mmHg (time 120 min, 16 min) Materials: one Arthrex plantar Lapidus plate, two 3.5 FT compression screws, four 3.5 locking screws, 2-0 Vicryl, 3-0 Vicryl, 5-0 nylon, cancellous bone chips Specimens: None Injections: Preoperative?one-to-one mixture of 1% lidocaine plain and 0.5% Marcaine plain administered in typical left ankle block, 20 cc Postoperative?one-to-one mix of 1% lidocaine plain and 0.5% Marcaine plain administered in typical first ray block and local infiltrative manner of left foot, 15 cc Surgeon: Ghazala Shi world history teacher: None (Sybil Rivera DPM, PGY3) Type of Anesthesia: General and Local Specimen's removed: none Drains: none Estimated Blood Loss (mL): 200 Description of Procedure: Indications: This 69 year old male with significant past medical history of inflammatory polyarthropathy on Enbrel has significant bunion foot pain of the left lower extremity. He has failed conservative care including shoe gear modification, NSAIDs, home exercise program, anti-inflammatory, padding, and offloading. Preoperative x-rays demonstrate severe increased intermetatarsal angle, lateral hallux deviation, lateral appearance of sesamoid apparatus, prominent first metatarsal head medial eminence with hypertrophic changes. Clinically, he has pain palpation to the bunion site that is very prominent and also ambulation with shoe gear. This is affecting his ability to perform his daily activities. His neurovascular status is intact. He is routinely seen by a reservations agent and he has held his Enbrel for 2 weeks leading up to surgery. The preoperative indication, planned procedure, possible benefits, risk, complications, and anticipated healing time management were discussed in detail with patient. He understands and elects to proceed with surgery at this time. Informed surgical consent and limb were signed. He understands risk and complications include but are not limited to following: pain, swelling, scarring, need for further surgery, hardware failure, recurrence, blood clot, allergic reaction, chronic pain, over or under correction, loss of limb, function, life, loss of sensation. No guarantees were made. He also understands COVID-19 is a current situation and his pain is preventing him from performing his daily activities. He understands the inherent risks with the virus being present in the community and understands significant precautions are being taken to prevent communicable spread during this time. He therefore elects to proceed forward with the procedure at this time. Preoperative clearance with Dr. Goncalves including history and physical exam were also reviewed. He also did not have any gross abnormalities with his preoperative diagnostic data including CBC, CMP, and EKG. I answered all of his questions Procedure in detail: The patient was transported to the operating room via cart and placed on the operating table in the supine position. Final verification the patient, surgery, limb designation was performed via the timeout procedure. IV antibiotics were administered preoperatively. The anesthesia team initiated general anesthesia. I administered the preoperative local anesthetic. A well padded left thigh tourniquet was placed in a well padded manner. The left lower extremity was prepped and draped in the usual aseptic manner. An Esmarch bandage was used to exsanguinate the left limb and surgery began the following: Attention was first directed at the medial aspect of the first metatarsal cuneiform articulation area in which a medial incision was made through the skin. Blunt dissection was performed down to the interface between the abductor hallucis muscle belly and plantar first metatarsal. Care was taken to identify, protect, and retract all neurovascular structures at this point and throughout the remainder of surgery. The desired interface was identified and carefully dissected. The first metatarsocuneiform articulation was identified clinically and confirmed with intraoperative fluoroscopy. A second sound was used to resect the articular surface of the first cuneiform taking a slight wedge with apex medially. Furthermore, osteotomes, and curettes were used to denude the articular surface of the first metatarsal base down to bleeding healthy subchondral bone and the remaining bone surfaces were mobilized to allow for correction. Joint preparation was further performed with fish scaling the surfaces. It is noted his bone is soft. A k-wire and tenaculum were placed with the first metatarsal now with varus rotation correction achieved. Sesamoid reduction, decreased first intermetatarsal angle, and [id number]-[id number] approximation was confirmed at the arthrodesis site with intraoperative fluoroscopy. A plantar Arthrex Lapidus plate was fashioned and temporary held in place with wires and BB taks. Minimal cancellous bone chips were applied to the dorsal medial joint. The plate was secured distally prior to compression screw application. Two FT compression screws were applied across the arthrodesis site taking care to remove all temporary fixation while the compression was applied. Lastly, the plate was secured proximally with locking screws. To maintain appropriate reduction in intermetatarsal space, screws were applied from the first and second metatarsal and also the first and second cuneiform bones. The unit was clinically and radiographically stressed and appeared to be stable as one solid unit with maintained deformity correction. The reduction was maintained and all screws and hardware placement maintained the proper placement and desired trajectory. The tourniquet was deflated at this time and no pulsatile bleeding was noted. Brisk capillary refill time was noted to all digits of the left foot. Next, attention was directed to the first metatarsophalangeal joint in which the remaining bunion deformity was evaluated. The previous incision was extended distally. Again blunt dissection was performed and care was taken to avoid neurovascular structures. After the tissue was permitted time to rest, the tourniquet was deflated again with exsanguination with an Esmarch bandage. The first metatarsal head was exposed medially and a sagittal saw was used to resect the medial and dorsal eminence taking caution to avoid disrupting the sagittal groove. Additional prominence off of the base of the medial aspect of the proximal phalanx of the hallux was also resected with a sagittal saw. Copious saline irrigation was performed at this time. The first metatarsophalangeal joint was taken through range of motion and was smooth and gliding with improved range noted. The tourniquet was deflated again at this time and brisk capillary refill time was noted to all digits of the left foot. No pulsatile bleeding was noted. Deep layered closure was achieved with Vicryl taking care to maintain a balanced tissue closure. The skin was next reapproximated with nylon suture with horizontal and simple suture techniques. Clinically, the fixation was solid and the deformities were reduced. Post operative injection was administered at this time as noted. A postoperative dressing was applied including Betadine soaked gauze. This was further covered with 4 x 4 gauze, Kerlix, abdominal pad, and Julian wrap. Next, a well-padded posterior mold was applied with the surgical limb in a rectus position and secured with JULIAN wrap. After procedure: The patient tolerated the procedure and anesthesia well. He was transferred to the PACU with vital signs stable and vascular status intact to the left lower extremity. He was advised to maintain a strict nonweightbearing status. He was advised to ice and elevate for pain and inflammation control. He was also provided with a postoperative pain medication prescription, tramadol, and was advised on safe and proper use. He was advised to keep his splint and dressing clean, dry, and intact until follow-up next week. He has assistive devices to help him maintain a nonweightbearing status including crutches and a knee roller. Postoperative x-rays were reviewed as noted. Resumed Enbrel use will be considered after wound healing and bone healing are confirmed. He will follow-up with the foot and ankle center next week. Grafts/Implants Used: arthrex hardware Complications none Admit VTE Documentation VTE Present on Admission: No VTE Mechan Device Prophylaxis: SCD's VTE Pharm Prophylaxis ordered?: No Reason prophylaxis not ordered:: Treatment Not Indicated
--- NOTE | 2020-06-26 11:30 | RAD_ITS ---
STUDY: X-RAY - LEFT FOOT CLINICAL: Male, 69 years old. s/p bunionectomy (lapidus) TECHNIQUE: 3 view(s) of the foot. COMPARISON: 11/28/2017 FINDINGS: Normal talus, calcaneus, and tarsal bones. Interval midfoot arthrodesis with a medial plate and screws. Normal metatarsi. Normal metatarsophalangeal joint of the great toe. Normal tibial and fibular sesamoid bones. Normal interphalangeal joint of the great toe. Normal phalanges of the great toe. Normal second through fifth metatarsophalangeal joints. Status post fusion of the second third digits which is unchanged. The soft tissue structures are unremarkable. RAD/Foot min 3 Views IMPRESSION: Interval midfoot arthrodesis. Electronically Signed: Jose Zamudio MD at 16:51 EDT Tel , Service support ,
== END 2020-06-26 13:41 | disposition home or self-care (01) ==
LOC: SDC 05:57 → AC 05:59
PROVIDERS: PCP Family Medicine; Referring Provider Podiatrist; Visit Provider Podiatrist
PROC: (CPT 28292; principal; 2020-06-26 07:15)
DX: M20.12 Hallux valgus (acquired), left foot (principal); M20.42 Other hammer toe(s) (acquired), left foot; M21.612 Bunion of left foot; Z20.822 Contact with and (suspected) exposure to COVID-19; M06.9 Rheumatoid arthritis, unspecified; Z79.899 Other long term (current) drug therapy
CPT/HCPCS: 01480; 28297; 28299; 73630; 76000; 87426; C1713; C1776; C9803; J7120; J2405

== ENCOUNTER → 2020-09-28 14:30 | Outpatient (CLI) | payer BC, MEDICARE, SELFPAY ==
[2020-06-26 06:28] VITALS: BMI 23.0
[2020-09-28 18:04] LABS: Absolute Lymphocyte Count 1.57 X10^3/uL (0.83-4.51); Absolute Neutrophil Count 4.9 X10^3/uL (2.0-7.7); Basophil# 0.02 X10^3/uL; Basophil% 0.3 % (0-1); Eosinophil# 0.03 X10^3/uL; Eosinophils% 0.4 % (0-5); Hematocrit 36.9 % (40-54); Hemoglobin 12.6 g/dL (13.0-16.5); Lymphocyte # 1.57 X10^3/ul (0.83-4.51); Lymphocyte % 22.1 % (19-41); Mean Corp Hgb Conc 34.1 g/dL (32-36); Mean Corpuscular Hgb 29.9 pg (27.0-32.0); Mean Corpuscular Volume 87.4 fL (80-94); Monocyte# 0.56 X10^3/uL; Monocyte% 7.9 % (0-10); NRBC Flagged by Analyzer 0 % (0-5); Platelet Count 226 K/mm3 (150-450); RBC Distribution Width CV 13.1 % (11.6-14.6); RBC Distribution Width SD 41.5 fl (35.1-43.9); Red Blood Count 4.22 M/mm3 (4.6-6.2); White Blood Count 7.1 K/mm3 (4.4-11.0)
[2020-09-28 18:24] LABS: ALB/GLOB Ratio 0.9 RATIO (0.9-2.4); AST(SGOT) 19 U/L (15-37); Alanine Aminotransfer ALT/SGPT 22 U/L (16-61); Albumin, Serum 3.3 g/dL (3.2-5.0); Alkaline Phosphatase 186 U/L (45-117); Anion Gap 7 (5-15); BUN 23 mg/dL (7-18); BUN/Creat Ratio 17.6 RATIO (10-20); Calcium,Total 8.9 mg/dL (8.5-10.1); Chloride 107 mmol/L (98-107); Creatinine, Serum 1.31 mg/dL (0.70-1.30); EST Glomerular Filtration Rate 57 mL/min (>60); Est Glom Filt Rate - Afr Amer 69 mL/min (>60); Globulin 3.6 g/dL (2.2-4.2); Glucose 117 mg/dL (74-106); Potassium 3.9 mmol/L (3.5-5.1); Protein, Total 6.9 g/dL (6.4-8.2); Sodium Level 138 mmol/L (136-145)
== END ==
PROVIDERS: PCP Family Medicine; Referring Provider Internal Medicine Rheumatology; Visit Provider Internal Medicine Rheumatology
DX: M05.70 Rheumatoid arthritis with rheumatoid factor of unspecified site without organ or systems involvement (principal); M81.0 Age-related osteoporosis without current pathological fracture; Z79.899 Other long term (current) drug therapy
CPT/HCPCS: 36415; 80053; 85025

== ENCOUNTER → 2020-11-30 06:41 | Outpatient (CLI) | payer BC, MEDICARE, SELFPAY ==
[2020-11-30 08:54] LABS: Anion Gap 4 (5-15); BUN 17 mg/dL (7-18); BUN/Creat Ratio 11.8 RATIO (10-20); Calcium,Total 8.9 mg/dL (8.5-10.1); Chloride 108 mmol/L (98-107); Cholesterol 168 mg/dL (200); Creatinine, Serum 1.44 mg/dL (0.70-1.30); EST Glomerular Filtration Rate 51 mL/min (>60); Est Glom Filt Rate - Afr Amer 62 mL/min (>60); Glucose 97 mg/dL (74-106); High Density Lipoprotein 47 mg/dL; PSA,Total- Diagnostic 0.06 ng/mL (0.0-4.0); Potassium 4.2 mmol/L (3.5-5.1); Sodium Level 138 mmol/L (136-145); Triglycerides 71 mg/dL; Very Low Density Lipoprotein 14 mg/dL (5-40)
[2020-11-30 10:58] LABS: Vitamin D,25 Hydroxy 27.8 ng/mL
== END ==
PROVIDERS: PCP Family Medicine; Referring Provider Urology; Visit Provider Urology
DX: Z00.00 Encounter for general adult medical examination without abnormal findings (principal); C61 Malignant neoplasm of prostate
CPT/HCPCS: 36415; 80048; 80061; 82306; 84153; 84403; 84443

== ENCOUNTER 2021-03-22 11:24 | Outpatient (CLI) | payer BC, MEDICARE, SELFPAY ==
[2021-03-22 15:03] LABS: Absolute Lymphocyte Count 2.43 X10^3/uL (0.83-4.51); Absolute Neutrophil Count 4.3 X10^3/uL (2.0-7.7); Basophil# 0.04 X10^3/uL; Basophil% 0.5 % (0-1); Eosinophil# 0.19 X10^3/uL; Eosinophils% 2.5 % (0-5); Hematocrit 37.5 % (40-54); Lymphocyte # 2.43 X10^3/ul (0.83-4.51); Lymphocyte % 31.8 % (19-41); Mean Corp Hgb Conc 34.7 g/dL (32-36); Mean Corpuscular Hgb 29.7 pg (27.0-32.0); Mean Corpuscular Volume 85.8 fL (80-94); Mean Platelet Vol. 9.4 fl (6.2-12.0); Monocyte% 9.2 % (0-10); NRBC Flagged by Analyzer 0 % (0-5); Neutrophil # 4.25 X10^3/uL (2.7-7.7); Neutrophil % 55.6 % (47-70); Platelet Count 213 K/mm3 (150-450); RBC Distribution Width CV 13.7 % (11.6-14.6); RBC Distribution Width SD 42.8 fl (35.1-43.9); Red Blood Count 4.37 M/mm3 (4.6-6.2); White Blood Count 7.6 K/mm3 (4.4-11.0)
[2021-03-22 15:21] LABS: ALB/GLOB Ratio 0.9 RATIO (0.9-2.4); AST(SGOT) 18 U/L (15-37); Alanine Aminotransfer ALT/SGPT 27 U/L (16-61); Albumin, Serum 3.2 g/dL (3.2-5.0); Alkaline Phosphatase 142 U/L (45-117); Anion Gap 7 (5-15); BUN 19 mg/dL (7-18); BUN/Creat Ratio 15.6 RATIO (10-20); Calcium,Total 8.5 mg/dL (8.5-10.1); Chloride 105 mmol/L (98-107); Creatinine, Serum 1.22 mg/dL (0.70-1.30); EST Glomerular Filtration Rate 62 mL/min (>60); Est Glom Filt Rate - Afr Amer 75 mL/min (>60); Globulin 3.7 g/dL (2.2-4.2); Glucose 84 mg/dL (74-106); Potassium 3.6 mmol/L (3.5-5.1); Protein, Total 6.9 g/dL (6.4-8.2); Sodium Level 136 mmol/L (136-145)
== END 2021-03-22 23:59 | disposition home or self-care (01) ==
LOC: MTLAB 11:26
PROVIDERS: Referring Provider Internal Medicine Rheumatology; Visit Provider Internal Medicine Rheumatology
DX: M05.70 Rheumatoid arthritis with rheumatoid factor of unspecified site without organ or systems involvement (principal); M81.0 Age-related osteoporosis without current pathological fracture; Z79.899 Other long term (current) drug therapy
CPT/HCPCS: 36415; 80053; 85025

== ENCOUNTER 2021-03-29 07:58 | Outpatient (CLI) | payer BC, MEDICARE, SELFPAY ==
[2021-03-31 22:07] LABS: QNTFERON TB Mitogen Value 5.44 IU/mL (.); QNTFERON TB Nil Value 0.03 IU/mL (.); QNTFERON TB1+ Ag Value 0.03 IU/mL (.); QNTFERON TB2+ Ag Value 0.05 IU/mL (.)
[2021-04-01 16:19] LABS: QNTIFERON TB Positive Criteria Negative (Negative)
== END 2021-03-29 23:59 | disposition home or self-care (01) ==
LOC: MTLAB 07:59
PROVIDERS: Referring Provider Internal Medicine Rheumatology; Visit Provider Internal Medicine Rheumatology
DX: M05.70 Rheumatoid arthritis with rheumatoid factor of unspecified site without organ or systems involvement (principal); M81.0 Age-related osteoporosis without current pathological fracture; Z79.899 Other long term (current) drug therapy
CPT/HCPCS: 36415; 86480

== ENCOUNTER 2021-05-27 13:29 | Outpatient (CLI) | payer BC, MEDICARE, SELFPAY ==
[2021-05-27 15:32] LABS: PSA,Total- Diagnostic 0.21 ng/mL (0.0-4.0)
== END 2021-05-27 23:59 | disposition home or self-care (01) ==
LOC: MTLAB 13:31
PROVIDERS: Referring Provider Urology; Visit Provider Urology
DX: C61 Malignant neoplasm of prostate (principal)
CPT/HCPCS: 36415; 84153

== ENCOUNTER → 2021-09-20 | Outpatient (CLI) | payer BC, MEDICARE, SELFPAY ==
[2021-09-20 15:28] LABS: Absolute Lymphocyte Count 1.43 X10^3/uL (0.83-4.51); Absolute Neutrophil Count 3.5 X10^3/uL (2.0-7.7); Basophil# 0.06 X10^3/uL; Eosinophil# 0.17 X10^3/uL; Eosinophils% 2.9 % (0-5); Hematocrit 35.5 % (40-54); Hemoglobin 12.4 g/dL (13.0-16.5); Lymphocyte # 1.43 X10^3/ul (0.83-4.51); Lymphocyte % 24.7 % (19-41); Mean Corp Hgb Conc 34.9 g/dL (32-36); Mean Corpuscular Hgb 29.6 pg (27.0-32.0); Mean Corpuscular Volume 84.7 fL (80-94); Mean Platelet Vol. 9.5 fl (6.2-12.0); Monocyte# 0.58 X10^3/uL; NRBC Flagged by Analyzer 0 % (0-5); Neutrophil # 3.53 X10^3/uL (2.7-7.7); Neutrophil % 61.2 % (47-70); Platelet Count 250 K/mm3 (150-450); RBC Distribution Width CV 13.5 % (11.6-14.6); RBC Distribution Width SD 41.9 fl (35.1-43.9); Red Blood Count 4.19 M/mm3 (4.6-6.2); White Blood Count 5.8 K/mm3 (4.4-11.0)
[2021-09-20 15:54] LABS: ALB/GLOB Ratio 0.8 RATIO (0.9-2.4); AST(SGOT) 19 U/L (15-37); Alanine Aminotransfer ALT/SGPT 21 U/L (16-61); Albumin, Serum 2.9 g/dL (3.2-5.0); Alkaline Phosphatase 132 U/L (45-117); Anion Gap 6 (5-15); BUN 18 mg/dL (7-18); BUN/Creat Ratio 12.7 RATIO (10-20); Calcium,Total 8.6 mg/dL (8.5-10.1); Chloride 104 mmol/L (98-107); Creatinine, Serum 1.42 mg/dL (0.70-1.30); EST Glomerular Filtration Rate 52 mL/min (>60); Est Glom Filt Rate - Afr Amer 63 mL/min (>60); Globulin 3.7 g/dL (2.2-4.2); Glucose 123 mg/dL (74-106); Potassium 3.8 mmol/L (3.5-5.1); Protein, Total 6.6 g/dL (6.4-8.2); Sodium Level 135 mmol/L (136-145)
== END | disposition home or self-care (01) ==
LOC: MTLAB 13:33
PROVIDERS: Referring Provider Internal Medicine Rheumatology; Visit Provider Internal Medicine Rheumatology
DX: M05.70 Rheumatoid arthritis with rheumatoid factor of unspecified site without organ or systems involvement (principal); M81.0 Age-related osteoporosis without current pathological fracture; Z79.899 Other long term (current) drug therapy
CPT/HCPCS: 36415; 80053; 85025

== ENCOUNTER → 2021-10-25 | Outpatient (CLI) | payer BC, MEDICARE, SELFPAY ==
[2021-10-25 12:46] LABS: Anion Gap 9 (5-15); BUN 18 mg/dL (7-18); BUN/Creat Ratio 12.9 RATIO (10-20); Calcium,Total 8.8 mg/dL (8.5-10.1); Chloride 106 mmol/L (98-107); Cholesterol 170 mg/dL (200); EST Glomerular Filtration Rate 53 mL/min (>60); Est Glom Filt Rate - Afr Amer 64 mL/min (>60); Glucose 89 mg/dL (74-106); High Density Lipoprotein 51 mg/dL; Potassium 4.4 mmol/L (3.5-5.1); Sodium Level 139 mmol/L (136-145); Triglycerides 88 mg/dL; Very Low Density Lipoprotein 18 mg/dL (5-40)
== END | disposition home or self-care (01) ==
LOC: MFPLAB 10:10
PROVIDERS: PCP Family Medicine; Visit Provider Family Medicine
DX: Z00.00 Encounter for general adult medical examination without abnormal findings (principal)
CPT/HCPCS: 36415; 80048; 80061

== ENCOUNTER → 2021-11-30 | Outpatient (CLI) | payer BC, MEDICARE, SELFPAY ==
[2021-11-30 15:42] LABS: PSA,Total - Annual Screen 0.36 ng/mL (0.00-4.00)
== END | disposition home or self-care (01) ==
LOC: MTLAB 13:22
PROVIDERS: PCP Family Medicine; Referring Provider Urology; Visit Provider Urology
DX: C61 Malignant neoplasm of prostate (principal)
CPT/HCPCS: 36415; 84153; G0103

== ENCOUNTER → 2021-12-14 | Outpatient (CLI) | payer BC, MEDICARE, SELFPAY ==
[2021-12-14 15:25] LABS: Absolute Lymphocyte Count 1.83 X10^3/uL (0.83-4.51); Absolute Neutrophil Count 2.7 X10^3/uL (2.0-7.7); Basophil# 0.06 X10^3/uL; Basophil% 1.1 % (0-1); Eosinophil# 0.21 X10^3/uL; Eosinophils% 3.8 % (0-5); Hematocrit 39.9 % (40-54); Hemoglobin 14.2 g/dL (13.0-16.5); Lymphocyte # 1.83 X10^3/ul (0.83-4.51); Lymphocyte % 33.4 % (19-41); Mean Corp Hgb Conc 35.6 g/dL (32-36); Mean Corpuscular Hgb 30.5 pg (27.0-32.0); Mean Corpuscular Volume 85.8 fL (80-94); Mean Platelet Vol. 10.2 fl (6.2-12.0); Monocyte# 0.71 X10^3/uL; NRBC Flagged by Analyzer 0 % (0-5); Neutrophil # 2.67 X10^3/uL (2.7-7.7); Neutrophil % 48.7 % (47-70); Platelet Count 179 K/mm3 (150-450); RBC Distribution Width CV 13.9 % (11.6-14.6); RBC Distribution Width SD 43.7 fl (35.1-43.9); Red Blood Count 4.65 M/mm3 (4.6-6.2); White Blood Count 5.5 K/mm3 (4.4-11.0)
[2021-12-14 15:45] LABS: ALB/GLOB Ratio 0.8 RATIO (0.9-2.4); AST(SGOT) 26 U/L (15-37); Alanine Aminotransfer ALT/SGPT 29 U/L (16-61); Albumin, Serum 3.2 g/dL (3.2-5.0); Alkaline Phosphatase 145 U/L (45-117); Anion Gap 6 (5-15); BUN 22 mg/dL (7-18); BUN/Creat Ratio 14.8 RATIO (10-20); Calcium,Total 8.9 mg/dL (8.5-10.1); Chloride 105 mmol/L (98-107); Creatinine, Serum 1.49 mg/dL (0.70-1.30); EST Glomerular Filtration Rate 49 mL/min (>60); Est Glom Filt Rate - Afr Amer 60 mL/min (>60); Globulin 3.8 g/dL (2.2-4.2); Glucose 75 mg/dL (74-106); Sodium Level 138 mmol/L (136-145)
== END | disposition home or self-care (01) ==
LOC: MTLAB 11:22
PROVIDERS: PCP Family Medicine; Referring Provider Internal Medicine Rheumatology; Visit Provider Internal Medicine Rheumatology
DX: M05.70 Rheumatoid arthritis with rheumatoid factor of unspecified site without organ or systems involvement (principal); M81.0 Age-related osteoporosis without current pathological fracture; Z79.899 Other long term (current) drug therapy
CPT/HCPCS: 36415; 80053; 85025

== ENCOUNTER → 2022-06-29 | Outpatient (CLI) | payer BC, MEDICARE, SELFPAY ==
[2022-06-29 13:38] LABS: Absolute Lymphocyte Count 1.68 X10^3/uL (0.83-4.51); Basophil# 0.05 X10^3/uL; Basophil% 0.9 % (0-1); Eosinophil# 0.18 X10^3/uL; Eosinophils% 3.2 % (0-5); Hematocrit 39.9 % (40-54); Hemoglobin 13.9 g/dL (13.0-16.5); Lymphocyte # 1.68 X10^3/ul (0.83-4.51); Lymphocyte % 29.6 % (19-41); Mean Corp Hgb Conc 34.8 g/dL (32-36); Mean Corpuscular Hgb 31.2 pg (27.0-32.0); Mean Corpuscular Volume 89.7 fL (80-94); Mean Platelet Vol. 9.3 fl (6.2-12.0); Monocyte% 12.3 % (0-10); NRBC Flagged by Analyzer 0 % (0-5); Neutrophil # 3.04 X10^3/uL (2.7-7.7); Neutrophil % 53.6 % (47-70); Platelet Count 183 K/mm3 (150-450); RBC Distribution Width CV 13.4 % (11.6-14.6); RBC Distribution Width SD 44.2 fl (35.1-43.9); Red Blood Count 4.45 M/mm3 (4.6-6.2); White Blood Count 5.7 K/mm3 (4.4-11.0)
[2022-06-29 14:15] LABS: ALB/GLOB Ratio 0.8 RATIO (0.9-2.4); AST(SGOT) 37 U/L (15-37); Alanine Aminotransfer ALT/SGPT 40 U/L (16-61); Albumin, Serum 3.4 g/dL (3.2-5.0); Alkaline Phosphatase 146 U/L (45-117); Anion Gap 4 (5-15); BUN 20 mg/dL (7-18); BUN/Creat Ratio 14.2 RATIO (10-20); Calcium,Total 8.8 mg/dL (8.5-10.1); Chloride 108 mmol/L (98-107); Cholesterol 170 mg/dL (200); Creatinine, Serum 1.41 mg/dL (0.70-1.30); EST Glomerular Filtration Rate 52 mL/min (>60); Est Glom Filt Rate - Afr Amer 63 mL/min (>60); Globulin 4.2 g/dL (2.2-4.2); Glucose 82 mg/dL (74-106); High Density Lipoprotein 54 mg/dL; Magnesium 2.3 mg/dL (1.6-2.6); Potassium 4.5 mmol/L (3.5-5.1); Protein, Total 7.6 g/dL (6.4-8.2); Sodium Level 138 mmol/L (136-145); Thyroid Stim Hormone (TSH) 4.99 uIU/mL (0.358-3.74); Triglycerides 85 mg/dL; Very Low Density Lipoprotein 17 mg/dL (5-40)
[2022-06-29 14:19] LABS: Vitamin D,25 Hydroxy 43.6 ng/mL
[2022-06-30 11:39] LABS: Free T3 2.2 pg/mL (2.18-3.98); T4 Free Direct 1.06 ng/dL (0.76-1.46)
== END | disposition home or self-care (01) ==
LOC: LAB 12:27
PROVIDERS: PCP Internal Medicine; Referring Provider Internal Medicine; Visit Provider Internal Medicine
DX: I35.1 Nonrheumatic aortic (valve) insufficiency (principal); C44.90 Unspecified malignant neoplasm of skin, unspecified; R03.0 Elevated blood-pressure reading, without diagnosis of hypertension; R79.89 Other specified abnormal findings of blood chemistry; R94.6 Abnormal results of thyroid function studies; E55.9 Vitamin D deficiency, unspecified; Z13.220 Encounter for screening for lipoid disorders; Z12.5 Encounter for screening for malignant neoplasm of prostate
CPT/HCPCS: 36415; 80053; 80061; 82306; 83735; 84439; 84443; 84481; 85025

== ENCOUNTER → 2022-07-19 | Outpatient (CLI) | payer BC, MEDICARE, SELFPAY ==
[2022-07-19 12:31] LABS: Absolute Lymphocyte Count 1.65 X10^3/uL (0.83-4.51); Absolute Neutrophil Count 3.9 X10^3/uL (2.0-7.7); Basophil# 0.04 X10^3/uL; Basophil% 0.6 % (0-1); Eosinophil# 0.19 X10^3/uL; Hemoglobin 13.3 g/dL (13.0-16.5); Lymphocyte # 1.65 X10^3/ul (0.83-4.51); Lymphocyte % 26.4 % (19-41); Mean Corp Hgb Conc 34.1 g/dL (32-36); Mean Corpuscular Hgb 30.9 pg (27.0-32.0); Mean Corpuscular Volume 90.5 fL (80-94); Mean Platelet Vol. 9.7 fl (6.2-12.0); Monocyte# 0.49 X10^3/uL; Monocyte% 7.8 % (0-10); NRBC Flagged by Analyzer 0 % (0-5); Neutrophil # 3.88 X10^3/uL (2.7-7.7); Platelet Count 190 K/mm3 (150-450); RBC Distribution Width CV 13.5 % (11.6-14.6); RBC Distribution Width SD 44.9 fl (35.1-43.9); Red Blood Count 4.31 M/mm3 (4.6-6.2); White Blood Count 6.3 K/mm3 (4.4-11.0)
[2022-07-19 12:56] LABS: ALB/GLOB Ratio 0.9 RATIO (0.9-2.4); AST(SGOT) 20 U/L (15-37); Alanine Aminotransfer ALT/SGPT 31 U/L (16-61); Albumin, Serum 3.2 g/dL (3.2-5.0); Alkaline Phosphatase 158 U/L (45-117); Anion Gap 4 (5-15); BUN 17 mg/dL (7-18); BUN/Creat Ratio 11.9 RATIO (10-20); Chloride 107 mmol/L (98-107); Creatinine, Serum 1.43 mg/dL (0.70-1.30); EST Glomerular Filtration Rate 52 mL/min (>60); Est Glom Filt Rate - Afr Amer 62 mL/min (>60); Globulin 3.6 g/dL (2.2-4.2); Glucose 103 mg/dL (74-106); PSA,Total- Diagnostic 0.87 ng/mL (0.0-4.0); Protein, Total 6.8 g/dL (6.4-8.2); Sodium Level 139 mmol/L (136-145)
== END | disposition home or self-care (01) ==
LOC: MTLAB 10:49
PROVIDERS: PCP Internal Medicine; Referring Provider Internal Medicine Rheumatology; Visit Provider Internal Medicine Rheumatology
DX: M05.79 Rheumatoid arthritis with rheumatoid factor of multiple sites without organ or systems involvement (principal); C61 Malignant neoplasm of prostate; Z79.899 Other long term (current) drug therapy; M81.0 Age-related osteoporosis without current pathological fracture
CPT/HCPCS: 36415; 80053; 84153; 85025

== ENCOUNTER → 2022-07-28 | Outpatient (CLI) | payer BC, MEDICARE, SELFPAY ==
--- NOTE | 2022-07-28 12:51 | ECHOD_ITS ---
Reason For Study: AORTIC INSUFFICIENCY Procedure This was a 2D Doppler, Color Flow transthoracic echocardiogram. Exam performed in department. Left Ventricle Normal LV size. Left ventricular systolic function is normal. The estimated ejection fraction is 60 %. Stage 1 diastolic dysfunction. No regional wall motion abnormalities noted. Right Ventricle Normal RV size. Normal systolic function. Atria Normal left atrium. Normal right atrium. Mitral Valve Normal mitral valve. Tricuspid Valve Normal tricuspid valve. Aortic Valve Trisinus/trileaflet aortic valve. Mild-Moderate (1-2+) eccentric aortic valve insufficiency. Pulmonic Valve Normal pulmonic valve. Great Vessels Normal aortic root. The pulmonary artery is normal size. Normal inferior vena cava. Pericardium/Pleural No pericardial effusion. MMode/2D Measurements & Calculations LVIDd: 5.1 cm IVSd: 1.0 cm Ao root diam: 3.2 cm LVIDs: 3.7 cm LVPWd: 0.91 cm RVDd: 3.4 cm FS: 27.9 % LAV(MOD-bp): 33.5 ml LVAd ap4: 34.6 cm2 SV(MOD-sp4): 64.4 ml LAV(MOD-bp) Indexed: 18.1 ml/m2 LVLd ap4: 7.6 cm LAV(MOD-sp2): 31.6 ml EDV(MOD-sp4): 125.3 ml LAV(MOD-sp4): 28.2 ml EDV(sp4-el): 133.8 ml LVAs ap4: 22.2 cm2 LVLs ap4: 6.7 cm ESV(MOD-sp4): 60.9 ml ESV(sp4-el): 62.7 ml EF(MOD-sp4): 51.4 % EF(sp4-el): 53.1 % SV(sp4-el): 71.1 ml LA A4 area: 12.3 cm2 LA dimension(2D): 3.1 cm RA A4 area: 9.6 cm2 Time Measurements MV dec time: 0.16 sec Doppler Measurements & Calculations MV E max ray: 37.7 cm/sec Lat Peak E' Ray: 5.4 cm/sec Med Peak E' Ray: 5.4 cm/sec MV A max ray: 63.2 cm/sec E/E' lat: 6.9 E/E' med: 6.9 MV E/A: 0.60 Ao V2 max: 137.2 cm/sec AI max ray: 461.4 cm/sec LV V1 max: 148.1 cm/sec Ao max P.5 mmHg AI max P.2 mmHg LV V1 max P.8 mmHg AI dec slope: 395.4 cm/sec2 AI P1/2t: 341.8 msec PA V2 max: 68.4 cm/sec ECHO/Echo Complete Interpretation Summary Normal LV size. Left ventricular systolic function is normal. The estimated ejection fraction is 60 %. Mild-Moderate (1-2+) eccentric aortic valve insufficiency. Stage 1 diastolic dysfunction. Ordering Physician: Paola Ratliff Referring Physician: Paola Ratliff Performed By: Mery Jimenez RDCS
== END | disposition home or self-care (01) ==
LOC: CVS 12:50
PROVIDERS: PCP Internal Medicine; Referring Provider Internal Medicine; Visit Provider Internal Medicine
DX: I35.1 Nonrheumatic aortic (valve) insufficiency (principal)
CPT/HCPCS: 93306

== ENCOUNTER → 2022-09-02 | Outpatient (CLI) | payer BC, MEDICARE, SELFPAY ==
[2022-09-02 13:15] LABS: Anion Gap 8 (5-15); BUN 29 mg/dL (7-18); Calcium,Total 8.9 mg/dL (8.5-10.1); Chloride 95 mmol/L (98-107); Creatinine, Serum 1.45 mg/dL (0.70-1.30); EST Glomerular Filtration Rate 51 mL/min (>60); Est Glom Filt Rate - Afr Amer 61 mL/min (>60); Glucose 87 mg/dL (74-106); Potassium 4.1 mmol/L (3.5-5.1); Sodium Level 129 mmol/L (136-145)
== END | disposition home or self-care (01) ==
LOC: MTLAB 11:15
PROVIDERS: PCP Internal Medicine; Referring Provider Internal Medicine Cardiovascular Disease; Visit Provider Internal Medicine Cardiovascular Disease
DX: I12.9 Hypertensive chronic kidney disease with stage 1 through stage 4 chronic kidney disease, or unspecified chronic kidney disease (principal); N18.9 Chronic kidney disease, unspecified
CPT/HCPCS: 36415; 80048

== ENCOUNTER → 2022-09-26 | Outpatient (CLI) | payer BC, MEDICARE, SELFPAY ==
[2022-09-26 13:53] LABS: Anion Gap 7 (5-15); BUN 25 mg/dL (7-18); Calcium,Total 9.2 mg/dL (8.5-10.1); Chloride 98 mmol/L (98-107); Creatinine, Serum 1.47 mg/dL (0.70-1.30); EST Glomerular Filtration Rate 50 mL/min (>60); Est Glom Filt Rate - Afr Amer 60 mL/min (>60); Glucose 101 mg/dL (74-106); Potassium 4.7 mmol/L (3.5-5.1); Sodium Level 131 mmol/L (136-145)
[2022-09-26 13:55] LABS: Magnesium 2.2 mg/dL (1.6-2.6)
== END | disposition home or self-care (01) ==
PROVIDERS: PCP Internal Medicine; Referring Provider Internal Medicine Cardiovascular Disease; Visit Provider Internal Medicine Cardiovascular Disease
DX: I12.9 Hypertensive chronic kidney disease with stage 1 through stage 4 chronic kidney disease, or unspecified chronic kidney disease (principal); N18.9 Chronic kidney disease, unspecified; E87.1 Hypo-osmolality and hyponatremia
CPT/HCPCS: 36415; 80048; 83735

== ENCOUNTER → 2022-10-11 | Outpatient (CLI) | payer BC, MEDICARE, SELFPAY ==
[2022-10-11 10:44] LABS: Anion Gap 3 (5-15); BUN 22 mg/dL (7-18); BUN/Creat Ratio 14.6 RATIO (10-20); Calcium,Total 8.8 mg/dL (8.5-10.1); Chloride 100 mmol/L (98-107); Creatinine, Serum 1.51 mg/dL (0.70-1.30); EST Glomerular Filtration Rate 48 mL/min (>60); Est Glom Filt Rate - Afr Amer 59 mL/min (>60); Glucose 81 mg/dL (74-106); Potassium 4.1 mmol/L (3.5-5.1); Sodium Level 131 mmol/L (136-145)
== END | disposition home or self-care (01) ==
LOC: MTLAB 08:57
PROVIDERS: PCP Internal Medicine; Referring Provider Internal Medicine Cardiovascular Disease; Visit Provider Internal Medicine Cardiovascular Disease
DX: E87.1 Hypo-osmolality and hyponatremia (principal); I12.9 Hypertensive chronic kidney disease with stage 1 through stage 4 chronic kidney disease, or unspecified chronic kidney disease; N18.9 Chronic kidney disease, unspecified
CPT/HCPCS: 36415; 80048

== ENCOUNTER → 2023-02-16 | Outpatient (CLI) | payer BC, MEDICARE, SELFPAY ==
[2023-02-16 10:24] LABS: Absolute Lymphocyte Count 1.43 X10^3/uL (0.83-4.51); Absolute Neutrophil Count 2.6 X10^3/uL (2.0-7.7); Basophil# 0.03 X10^3/uL; Basophil% 0.6 % (0-1); Eosinophil# 0.19 X10^3/uL; Eosinophils% 3.9 % (0-5); Hematocrit 38.8 % (40-54); Hemoglobin 13.4 g/dL (13.0-16.5); Lymphocyte # 1.43 X10^3/ul (0.83-4.51); Lymphocyte % 29.4 % (19-41); Mean Corp Hgb Conc 34.5 g/dL (32-36); Mean Corpuscular Hgb 30.7 pg (27.0-32.0); Mean Platelet Vol. 10.1 fl (6.2-12.0); Monocyte# 0.61 X10^3/uL; Monocyte% 12.5 % (0-10); NRBC Flagged by Analyzer 0 % (0-5); Neutrophil % 53.4 % (47-70); Platelet Count 187 K/mm3 (150-450); RBC Distribution Width CV 12.6 % (11.6-14.6); RBC Distribution Width SD 41.4 fl (35.1-43.9); Red Blood Count 4.36 M/mm3 (4.6-6.2); White Blood Count 4.9 K/mm3 (4.4-11.0)
[2023-02-16 11:19] LABS: ALB/GLOB Ratio 0.8 RATIO (0.9-2.4); AST(SGOT) 30 U/L (15-37); Alanine Aminotransfer ALT/SGPT 24 U/L (16-61); Albumin, Serum 3.1 g/dL (3.2-5.0); Alkaline Phosphatase 119 U/L (45-117); Anion Gap 7 (5-15); BUN 15 mg/dL (7-18); BUN/Creat Ratio 10.1 RATIO (10-20); Calcium,Total 8.4 mg/dL (8.5-10.1); Chloride 105 mmol/L (98-107); Creatinine, Serum 1.48 mg/dL (0.70-1.30); EST Glomerular Filtration Rate 49 mL/min (>60); Est Glom Filt Rate - Afr Amer 60 mL/min (>60); Globulin 3.8 g/dL (2.2-4.2); Glucose 103 mg/dL (74-106); PSA,Total- Diagnostic 1.59 ng/mL (0.0-4.0); Potassium 4.1 mmol/L (3.5-5.1); Protein, Total 6.9 g/dL (6.4-8.2); Sodium Level 135 mmol/L (136-145)
== END | disposition home or self-care (01) ==
LOC: MTLAB 09:09
PROVIDERS: PCP Internal Medicine; Referring Provider Internal Medicine Rheumatology; Visit Provider Internal Medicine Rheumatology
DX: C61 Malignant neoplasm of prostate (principal); M05.79 Rheumatoid arthritis with rheumatoid factor of multiple sites without organ or systems involvement; M18.11 Unilateral primary osteoarthritis of first carpometacarpal joint, right hand; M81.0 Age-related osteoporosis without current pathological fracture; Z79.899 Other long term (current) drug therapy
CPT/HCPCS: 36415; 80053; 84153; 85025

== ENCOUNTER → 2023-08-29 | Outpatient (CLI) | payer BC, MEDICARE, SELFPAY ==
[2023-08-29 12:21] LABS: Absolute Lymphocyte Count 1.95 X10^3/uL (0.83-4.51); Basophil# 0.04 X10^3/uL; Basophil% 0.7 % (0-1); Eosinophil# 0.18 X10^3/uL; Hematocrit 34.3 % (40-54); Hemoglobin 12.1 g/dL (13.0-16.5); Lymphocyte # 1.95 X10^3/ul (0.83-4.51); Lymphocyte % 32.2 % (19-41); Mean Corp Hgb Conc 35.3 g/dL (32-36); Mean Corpuscular Hgb 30.9 pg (27.0-32.0); Mean Corpuscular Volume 87.7 fL (80-94); Mean Platelet Vol. 9.5 fl (6.2-12.0); Monocyte# 0.84 X10^3/uL; Monocyte% 13.9 % (0-10); NRBC Flagged by Analyzer 0 % (0-5); Neutrophil # 3.04 X10^3/uL (2.7-7.7); Platelet Count 202 K/mm3 (150-450); RBC Distribution Width CV 13.1 % (11.6-14.6); RBC Distribution Width SD 41.3 fl (35.1-43.9); Red Blood Count 3.91 M/mm3 (4.6-6.2); White Blood Count 6.1 K/mm3 (4.4-11.0)
[2023-08-29 12:22] LABS: PSA,Total- Diagnostic 2.27 ng/mL (0.0-4.0)
[2023-08-29 12:36] LABS: ALB/GLOB Ratio 0.8 RATIO (0.9-2.4); AST(SGOT) 22 U/L (15-37); Alanine Aminotransfer ALT/SGPT 20 U/L (16-61); Alkaline Phosphatase 154 U/L (45-117); Anion Gap 7 (5-15); BUN 30 mg/dL (7-18); BUN/Creat Ratio 18.1 RATIO (10-20); Calcium,Total 9.2 mg/dL (8.5-10.1); Chloride 107 mmol/L (98-107); Creatinine, Serum 1.66 mg/dL (0.70-1.30); EST Glomerular Filtration Rate 43 mL/min (>60); Est Glom Filt Rate - Afr Amer 52 mL/min (>60); Globulin 3.8 g/dL (2.2-4.2); Glucose 92 mg/dL (74-106); Protein, Total 6.8 g/dL (6.4-8.2); Sodium Level 137 mmol/L (136-145)
== END | disposition home or self-care (01) ==
LOC: MTLAB 10:29
PROVIDERS: Nurse Practitioner; PCP Internal Medicine; Referring Provider Internal Medicine Rheumatology; Visit Provider Internal Medicine Rheumatology
DX: C61 Malignant neoplasm of prostate (principal); M05.79 Rheumatoid arthritis with rheumatoid factor of multiple sites without organ or systems involvement; M18.11 Unilateral primary osteoarthritis of first carpometacarpal joint, right hand; M81.0 Age-related osteoporosis without current pathological fracture; Z79.899 Other long term (current) drug therapy
CPT/HCPCS: 36415; 80053; 84153; 85025

== ENCOUNTER → 2023-09-19 | Outpatient (CLI) | payer MEDICARE, SELFPAY ==
--- NOTE | 2023-09-19 09:30 | PET_ITS ---
EXAMINATION: Ga [address] ? INDICATIONS: 73-year-old male with a history of primary prostate carcinoma, presenting for restaging examination. ? COMPARISON EXAMINATION: None available ? INDEX LESION SIZE PROMISE SCORE SUV INTERPRETATION Bilateral hemithorax parenchyma ? 1 6.0 max Quantitative criteria for viable neoplasm are not fulfilled ? TECHNIQUE: Following the intravenous administration of 9.85 mCi of Ga 68 PSMA via the right antecubital fossa, multiplanar image acquisitions of the head, neck, chest, abdomen and pelvis to the level of the midthigh, obtained at 73 minutes post tracer distribution reveal: ? The examination was interpreted using the EANM (Harpreet et al., Journal of Nuclear Medicine Molecular Imaging 44:1622, 2017) and PROMISE (Mishel et al., Journal of Nuclear Medicine 59:469, 2018) interpretive criteria. ? HEIGHT:?? 70 inches WEIGHT:?? 150 pounds ? PSMA expression score PROMISE criteria: High (3): SUV > parotid-salivary gland, intermediate (2): SUV > liver, low (1): > blood pool, < liver, (0): < blood pool. ? SUV reference values: Parotid glands 17.4. Normal liver parenchyma 6.8. Blood pool 2.0. ? FINDINGS: ? HEAD/NECK:? Symmetric radiopharmaceutical concentration is defined in the bilateral parotid and submandibular glands. Physiologic tracer uptake is noted in the nasal cavity. ? There is no evidence of abnormal increased tracer uptake within the context of the cranial vault. ? CHEST:? Enhanced tracer uptake is noted in the bilateral hemithorax pulmonary parenchyma generating a calculated standard uptake value of 6.0. The PROMISE Score is 1. ? CT of the chest demonstrates the following anatomic characteristics: A hiatal hernia is defined. Atherosclerotic calcification is defined in the thoracic aorta without evidence of dilatation, aneurysm formation. There are no parenchymal densities-nodules defined in the right and left hemithorax with discernable increased tracer uptake. Mediastinal and bilateral axillary soft tissue densities are ametabolic. ? ABDOMEN/PELVIS:? Uniform, homogeneous radiopharmaceutical concentration is defined in the hepatic and splenic parenchyma, visualization of the bilateral renal units, urinary bladder, and visualized intestinal tract. ? CT of the abdomen and pelvis is remarkable for the following: Calcified phlebolith formation is noted in the bilateral lower hemipelvis. Postsurgical changes appear evident in the region of the prostate bed. Atherosclerotic calcification is defined in the abdominal aorta without evidence of dilatation, aneurysm formation. Pelvic arterial calcification is observed. ? SKELETAL:? There is no evidence of quantitatively significant enhanced radiopharmaceutical metabolism on meticulous inspection of the appendicular and axial skeletal structures. ? Degenerative changes defined in the thoracic and lumbar spine demonstrate no evidence of increased glucose metabolism. There are no sclerotic, mixed sclerotic-lytic, or primarily lytic changes defined in the axial skeletal structures with evidence of increased FDG uptake. ? PET/PET/CT Tumor Base -Thigh Subs IMPRESSION: 1. NEGATIVE EXAMINATION. There is no definitive quantitative scintigraphic evidence of recurrent-metastatic viable neoplasm. 2. Enhanced tracer uptake noted in the bilateral hemithorax pulmonary parenchyma does not fulfill quantitative criteria for malignant transformation on the current examination. (Mishel et al., Journal of Nuclear Medicine 59:469, 2018). Electronic Signature Jose Connolly D.O. Accurate Quantification of SUVs and standardized PROMISE scores for this report are calculated using the exclusive [employer], ([place]. Patent No. [phone] [phone] [place] patent [phone] ). Standardization and correction of the FDG SUV metric exclusively available with [employer] intellectual property, allow for vendor non-specific objective quantitative sequential FDG PET-CT comparison and otherwise unobtainable optimization of the sensitivity and specificity of the examination. https://[employer] Electronically Signed: Jose Connolly DO at 23:24 EDT ,
== END | disposition home or self-care (01) ==
LOC: ONC 09:05
PROVIDERS: PCP Internal Medicine; Referring Provider Urology; Visit Provider Urology
DX: C61 Malignant neoplasm of prostate (principal); R97.21 Rising PSA following treatment for malignant neoplasm of prostate
CPT/HCPCS: 78815; A9595

== ENCOUNTER → 2023-11-07 | Outpatient (CLI) | payer MEDICARE, SELFPAY ==
[2023-11-07 10:22] LABS: Anion Gap 5 (5-15); BUN 25 mg/dL (7-18); BUN/Creat Ratio 15.2 RATIO (10-20); Calcium,Total 9.3 mg/dL (8.5-10.1); Chloride 107 mmol/L (98-107); Creatinine, Serum 1.65 mg/dL (0.70-1.30); EST Glomerular Filtration Rate 44 mL/min (>60); Est Glom Filt Rate - Afr Amer 53 mL/min (>60); Glucose 101 mg/dL (74-106); Potassium 4.4 mmol/L (3.5-5.1); Sodium Level 135 mmol/L (136-145)
== END | disposition home or self-care (01) ==
LOC: MTLAB 08:48
PROVIDERS: PCP Internal Medicine; Referring Provider Nurse Practitioner Gerontology; Visit Provider Nurse Practitioner Gerontology
DX: I10 Essential (primary) hypertension (principal)
CPT/HCPCS: 36415; 80048

== ENCOUNTER → 2024-03-21 | Outpatient (CLI) | payer MEDICARE, SELFPAY ==
[2024-03-21 16:09] LABS: PSA,Total- Diagnostic 3.19 ng/mL (0.0-4.0)
== END | disposition home or self-care (01) ==
LOC: MTLAB 11:14
PROVIDERS: PCP Internal Medicine; Referring Provider Nurse Practitioner; Visit Provider Nurse Practitioner
DX: C61 Malignant neoplasm of prostate (principal)
CPT/HCPCS: 36415; 84153

== ENCOUNTER → 2024-09-30 | Outpatient (CLI) | payer MEDICARE, SELFPAY ==
[2024-09-30 16:09] LABS: PSA,Total- Diagnostic 4.20 ng/mL (0.00-4.00)
== END | disposition home or self-care (01) ==
LOC: MTLAB 13:52
PROVIDERS: PCP Internal Medicine; Referring Provider Nurse Practitioner; Visit Provider Nurse Practitioner
DX: C61 Malignant neoplasm of prostate (principal)
CPT/HCPCS: 36415; 84153

== ENCOUNTER → 2024-10-15 | Outpatient (CLI) | payer MEDICARE, SELFPAY ==
--- NOTE | 2024-10-15 10:30 | PET_ITS ---
PROCEDURE: PET/CT TUMOR BASE -THIGH SUBS 10/15/2024 REASON FOR EXAM: 74 y/o M with RISING PSA, MALIGNANT NEOPLASM OF PROSTATE TECHNIQUE: Procedure Code: [id number] Modality: PT Procedure: PET/CT TUMOR BASE -THIGH SUBS After intravenous injection of 9.4 millicuries of PSMA Ga-68 Illuccix and a standard uptake period, a noncontrast CT scan, followed by a PET scan were acquired along the length of the body from the top of the head to the mid thighs. The noncontrast helical CT imaging was performed without breath hold, for attenuation correction of PET images and anatomic correlation, but not for primary interpretation, as it is not of the standard diagnostic quality. Images were reviewed in the axial, coronal and sagittal planes. RADIATION DOSE SUMMARY: Effective Dose: Approximately 7 mSv for a standard whole-body PET scan CTDI: 7.91 mGy DLP: 840.32 mGy cm COMPARISON: COMPARISON FROM CT, PET OR OTHER PERTINENT EXAMS: [facility] PET-CT, 09/19/2023. FINDINGS: Examination of the 3D tomographic PET images demonstrates expected uptake in the lacrimal glands, salivary glands, liver, spleen, kidneys, bowel and bladder. There is calcific vascular disease of the intracranial portion of both internal carotid arteries. The intracranial contents are otherwise unremarkable. There is S shaped nasal septal deviation. There is a left-sided nasal spur. There is moderate upper lobe predominant centrilobular emphysema. There is pleural-parenchymal scarring in both lung apices. There are areas of mixed soft tissue and ground-glass opacity density in both lung apices. On the right measuring 3.2 x 1.6 cm, max SUV 6.6; on the left measuring 2.9 x 1.8 cm, max SUV 5.0. There are no pleural effusions. There is left axillary lymph node activity, max SUV 2.2. There is calcific vascular disease of the thoracic aorta and coronary arteries. There is a small hiatal hernia. There is a 9 mm in diameter hepatic cyst. There is stool throughout the colon. There is calcific vascular disease of the abdominal aorta. The prostate gland measures 4.2 cm in transverse dimension. There are fiducial markers within the prostate gland. Prostate bed: There is no abnormal activity in the prostate bed. Lymph nodes: There is no abnormal lymph node activity. Skeleton: There is no abnormal skeletal activity. Uptake time: 60 minutes. Mediastinal blood pool: Max SUV, 1.9 BMI: 20.7 PET/PET/CT Tumor Base -Thigh Subs IMPRESSION: 1. There are no foci of abnormal activity in the prostate bed, regional lymph nodes or skeletal system to suggest prostate carcinoma. 2. There is increased activity noted within areas of airspace disease in both lung apices. While this is probably postinflammatory scarring, neoplasm is not excluded. 3. There is reactive/inflammatory activity in the right axillary lymph nodes. 4. Other findings as noted. E- PSMA score: 3 E- PSMA scoring: Score = 1: Benign lesion without abnormal PSMA uptake. Score = 2: Probably benign lesion: Faint PSMA uptake (equal to or lower than ba ckground) in the site atypical for prostate cancer. Score = 3: Equivocal finding: Faint uptake in a site typical for prostate cance r or intense uptake in a site atypical prostate cancer. Score = 4: Probably prostate cancer: Intense uptake and a site typical for pros chavez cancer, but without definitive findings on CT. Score = 5: Definitive evidence of prostate cancer: Intense uptake in a typical site of prostate cancer with definitive findings on CT. Reading Location: [id number]
== END | disposition home or self-care (01) ==
LOC: ONC 10:14
PROVIDERS: PCP Internal Medicine; Referring Provider Urology; Visit Provider Urology
DX: C61 Malignant neoplasm of prostate (principal); R97.21 Rising PSA following treatment for malignant neoplasm of prostate
CPT/HCPCS: 78815; A9595

== ENCOUNTER → 2024-11-27 | Outpatient (CLI) | payer MEDICARE, SELFPAY ==
[2024-11-27 12:18] LABS: Hematocrit 33.0 % (40-54); Hemoglobin 11.5 g/dL (13.0-16.5); Immature Granulocytes Count 0.040 X10^3/uL (0.0-0.0); Mean Corp Hgb Conc 34.8 g/dL (32-36); Mean Corpuscular Volume 82.9 fL (80-94); Mean Platelet Vol. 9.3 fl (6.2-12.0); NRBC Flagged by Analyzer 0 % (0-5); Platelet Count 231 K/mm3 (150-450); RBC Distribution Width CV 14.2 % (11.6-14.6); RBC Distribution Width SD 42.7 fl (35.1-43.9); Red Blood Count 3.98 M/mm3 (4.6-6.2); White Blood Count 4.5 K/mm3 (4.4-11.0)
[2024-11-27 13:09] LABS: AST(SGOT) 33 U/L (<=37); Alanine Aminotransfer ALT/SGPT 21 U/L (<=46); Albumin, Serum 3.6 g/dL (3.4-4.8); Alkaline Phosphatase 128 U/L (40-129); Anion Gap 9 (5-15); BUN 24 mg/dL (4-19); BUN/Creat Ratio 15.0 RATIO (10-20); Calcium,Total 9.2 mg/dL (7.6-11.0); Carbon Dioxide 23.3 mmol/L (21.0-32.0); Chloride 100 mmol/L (98-108); Cholesterol 186 mg/dL (<=200); Globulin 3.3 g/dL (2.2-4.2); Glucose 96 mg/dL (70-99); Low Density Lipoprotein Calc. 107 mg/dL; Potassium 4.4 mmol/L (3.3-5.1); Triglycerides 60 mg/dL; Very Low Density Lipoprotein 12 mg/dL (5-40); Vitamin D,25 Hydroxy 26.7 ng/mL (30-100); cholesterol:hdl ratio screen 2.76
== END | disposition home or self-care (01) ==
LOC: MTLAB 10:18
PROVIDERS: PCP Internal Medicine; Referring Provider Nurse Practitioner Gerontology; Visit Provider Nurse Practitioner Gerontology
DX: I12.9 Hypertensive chronic kidney disease with stage 1 through stage 4 chronic kidney disease, or unspecified chronic kidney disease (principal); C61 Malignant neoplasm of prostate; N18.9 Chronic kidney disease, unspecified; I35.1 Nonrheumatic aortic (valve) insufficiency; R73.9 Hyperglycemia, unspecified; C44.90 Unspecified malignant neoplasm of skin, unspecified; E55.9 Vitamin D deficiency, unspecified; Z13.220 Encounter for screening for lipoid disorders
CPT/HCPCS: 36415; 80053; 80061; 82306; 83036; 85025

== ENCOUNTER → 2024-12-05 | Outpatient (CLI) | payer MEDICARE, SELFPAY ==
--- NOTE | 2024-12-05 11:03 | RAD_ITS ---
PROCEDURE: WRIST MIN 3 VIEWS 12/05/2024 REASON FOR EXAM: CHRONIC PAIN OF BOTH WRISTS/ BILATERAL HAND PAIN TECHNIQUE: Procedure Code: RADWR Modality: DX Procedure: WRIST MIN 3 VIEWS Laterality: Right COMPARISON: None. FINDINGS: Bones: Diffuse bony demineralization. No acute bony abnormalities. Joints: Radiocarpal, 1st carpometacarpal, 1st metacarpophalangeal joint space narrowing with sclerosis consistent with osteoarthritis. Soft tissues: Unremarkable. RAD/Wrist min 3 Views IMPRESSION: Arthritic changes. Reading Location: [id number]
--- NOTE | 2024-12-05 11:03 | RAD_ITS ---
PROCEDURE: WRIST MIN 3 VIEWS 12/05/2024 REASON FOR EXAM: CHRONIC PAIN OF BOTH WRISTS/ BILATERAL HAND PAIN TECHNIQUE: Procedure Code: RADWR Modality: DX Procedure: WRIST MIN 3 VIEWS Laterality: Right COMPARISON: None. FINDINGS: Bones: Diffuse bony demineralization. No acute bony abnormalities. Joints: Radiocarpal, 1st carpometacarpal, 1st metacarpophalangeal joint space narrowing with sclerosis consistent with osteoarthritis. Soft tissues: Unremarkable. RAD/Wrist min 3 Views IMPRESSION: Arthritic changes. Reading Location: [id number]
--- NOTE | 2024-12-05 11:04 | RAD_ITS ---
PROCEDURE: WRIST MIN 3 VIEWS 12/05/2024 REASON FOR EXAM: CHRONIC PAIN OF BOTH WRISTS/BILATERAL HAND PAIN TECHNIQUE: Procedure Code: RADWR Modality: DX Procedure: WRIST MIN 3 VIEWS Laterality: Left COMPARISON: None FINDINGS: Bones: Diffuse bony demineralization. No acute bony abnormalities. Joints: Radiocarpal and 1st carpometacarpal joint space narrowing with sclerosis. Soft tissues: Unremarkable. RAD/Wrist min 3 Views IMPRESSION: Arthritic changes. Reading Location: [id number]
--- NOTE | 2024-12-05 11:04 | RAD_ITS ---
PROCEDURE: WRIST MIN 3 VIEWS 12/05/2024 REASON FOR EXAM: CHRONIC PAIN OF BOTH WRISTS/BILATERAL HAND PAIN TECHNIQUE: Procedure Code: RADWR Modality: DX Procedure: WRIST MIN 3 VIEWS Laterality: Left COMPARISON: None FINDINGS: Bones: Diffuse bony demineralization. No acute bony abnormalities. Joints: Radiocarpal and 1st carpometacarpal joint space narrowing with sclerosis. Soft tissues: Unremarkable. RAD/Wrist min 3 Views IMPRESSION: Arthritic changes. Reading Location: [id number]
--- NOTE | 2024-12-05 11:06 | RAD_ITS ---
PROCEDURE: HAND 2 VIEWS 12/05/2024 REASON FOR EXAM: BILATERAL HAND PAIN/HISTORY OF RHEUMATOID ARTHRITIS TECHNIQUE: Procedure Code: RADHAND 2V Modality: DX Procedure: HAND 2 VIEWS Laterality: Right COMPARISON: None. FINDINGS: Bones: Diffuse demineralization. No acute osseous abnormalities. Joints: Radiocarpal, 1st carpometacarpal, 1st metacarpophalangeal and distal interphalangeal joint space narrowing with sclerosis consistent with osteoarthritis. Soft tissues: Mild finger soft tissue swelling. RAD/Hand 2 Views IMPRESSION: Osteoarthritic changes as detailed. Reading Location: [id number]
--- NOTE | 2024-12-05 11:06 | RAD_ITS ---
PROCEDURE: HAND 2 VIEWS 12/05/2024 REASON FOR EXAM: BILATERAL HAND PAIN/HISTORY OF RHEUMATOID ARTHRITIS TECHNIQUE: Procedure Code: RADHAND 2V Modality: DX Procedure: HAND 2 VIEWS Laterality: Right COMPARISON: None. FINDINGS: Bones: Diffuse demineralization. No acute osseous abnormalities. Joints: Radiocarpal, 1st carpometacarpal, 1st metacarpophalangeal and distal interphalangeal joint space narrowing with sclerosis consistent with osteoarthritis. Soft tissues: Mild finger soft tissue swelling. RAD/Hand 2 Views IMPRESSION: Osteoarthritic changes as detailed. Reading Location: [id number]
--- NOTE | 2024-12-05 11:07 | RAD_ITS ---
PROCEDURE: HAND 2 VIEWS 12/05/2024 REASON FOR EXAM: BILATERAL HAND PAIN/HISTORY OF RHEUMATOID ARTHRITIS TECHNIQUE: Procedure Code: RADHAND 2V Modality: DX Procedure: HAND 2 VIEWS Laterality: Left COMPARISON: None FINDINGS: Bones: Diffuse demineralization. Joints: Radiocarpal, 1st carpometacarpal, 1st metacarpophalangeal and distal interphalangeal joint space narrowing with sclerosis consistent with osteoarthritis. Fusion of the proximal 4th interphalangeal joint. Soft tissues: Soft tissue swelling surrounding the distal interphalangeal joints. RAD/Hand 2 Views IMPRESSION: Osteoarthritis changes as detailed. Reading Location: [id number]
--- NOTE | 2024-12-05 11:07 | RAD_ITS ---
PROCEDURE: HAND 2 VIEWS 12/05/2024 REASON FOR EXAM: BILATERAL HAND PAIN/HISTORY OF RHEUMATOID ARTHRITIS TECHNIQUE: Procedure Code: RADHAND 2V Modality: DX Procedure: HAND 2 VIEWS Laterality: Left COMPARISON: None FINDINGS: Bones: Diffuse demineralization. Joints: Radiocarpal, 1st carpometacarpal, 1st metacarpophalangeal and distal interphalangeal joint space narrowing with sclerosis consistent with osteoarthritis. Fusion of the proximal 4th interphalangeal joint. Soft tissues: Soft tissue swelling surrounding the distal interphalangeal joints. RAD/Hand 2 Views IMPRESSION: Osteoarthritis changes as detailed. Reading Location: [id number]
[2024-12-05 15:15] LABS: Hematocrit 33.2 % (40-54); Hemoglobin 11.5 g/dL (13.0-16.5); Immature Granulocytes Count 0.000 X10^3/uL (0.0-0.0); Mean Corp Hgb Conc 34.6 g/dL (32-36); Mean Corpuscular Volume 84.5 fL (80-94); Mean Platelet Vol. 9.5 fl (6.2-12.0); NRBC Flagged by Analyzer 0 % (0-5); Platelet Count 228 K/mm3 (150-450); RBC Distribution Width CV 14.2 % (11.6-14.6); RBC Distribution Width SD 43.8 fl (35.1-43.9); Red Blood Count 3.93 M/mm3 (4.6-6.2); White Blood Count 4.2 K/mm3 (4.4-11.0)
[2024-12-05 15:46] LABS: AST(SGOT) 29 U/L (<=37); Alanine Aminotransfer ALT/SGPT 21 U/L (<=46); Albumin, Serum 3.6 g/dL (3.4-4.8); Alkaline Phosphatase 129 U/L (40-129); Anion Gap 9 (5-15); BUN 24 mg/dL (4-19); BUN/Creat Ratio 16.6 RATIO (10-20); Calcium,Total 9.1 mg/dL (7.6-11.0); Carbon Dioxide 23.1 mmol/L (21.0-32.0); Chloride 101 mmol/L (98-108); Globulin 2.9 g/dL (2.2-4.2); Glucose 91 mg/dL (70-99); Iron Binding Capacity,Total 296 ug/dL (250-450); Potassium 4.3 mmol/L (3.3-5.1)
[2024-12-05 15:50] LABS: Vitamin B12 885 pg/mL (180-914); Vitamin D,25 Hydroxy 25.3 ng/mL (30-100)
[2024-12-05 15:52] LABS: Iron 76 ug/dL (65-175); Iron Binding Capacity,Unsat 220 ug/dL (228-428)
[2024-12-05 16:04] LABS: CPK Total, Creatine Kinase 103 U/L (24-195)
[2024-12-05 16:05] LABS: CRP < 3.00 mg/L (0.0-3.0); Uric Acid 5.6 mg/dL (3.5-7.2)
[2024-12-09 11:08] LABS: Vitamin D 1,25-Dihydroxy 20.0 pg/mL (24.8-81.5)
[2024-12-10 15:08] LABS: Albumin 3.1 g/dL (2.9-4.4); Gamma Globulin 0.8 g/dL (0.4-1.8); HEPATITIS B SURFACE AG Negative (Negative); Hep C Antibodies Non Reactive (Non Reactive); IMMUNOFIXATION RESULT,S Comment: (.); Immunoglobulin A 525 mg/dL (61-437); Immunoglobulin G 1024 mg/dL (603-1613); Immunoglobulin M 89 mg/dL (15-143); PROEL- TOTAL PROTEIN 6.3 g/dL (6.0-8.5); QNTFERON TB Mitogen Value > 10.00 IU/mL (.); QNTFERON TB Nil Value 0.06 IU/mL (.); QNTFERON TB1+ Ag Value 0.10 IU/mL (.); QNTFERON TB2+ Ag Value 0.08 IU/mL (.); QNTIFERON TB Positive Criteria Negative (Negative)
== END | disposition home or self-care (01) ==
LOC: MTLAB 10:51
PROVIDERS: PCP Internal Medicine; Referring Provider Internal Medicine Rheumatology; Visit Provider Internal Medicine Rheumatology
DX: M79.641 Pain in right hand (principal); M05.79 Rheumatoid arthritis with rheumatoid factor of multiple sites without organ or systems involvement; M79.642 Pain in left hand; M25.531 Pain in right wrist; M25.532 Pain in left wrist; G89.29 Other chronic pain; M89.9 Disorder of bone, unspecified; M94.9 Disorder of cartilage, unspecified; I12.9 Hypertensive chronic kidney disease with stage 1 through stage 4 chronic kidney disease, or unspecified chronic kidney disease; N18.9 Chronic kidney disease, unspecified; D64.9 Anemia, unspecified; Z79.620 Long term (current) use of immunosuppressive biologic; R53.83 Other fatigue; Z87.39 Personal history of other diseases of the musculoskeletal system and connective tissue
CPT/HCPCS: 73110; 73120; 80053; 80074; 82306; 82550; 82607; 82652; 82784; 83540; 83550; 84165; 84403; 84443; 84550; 85025; 85652; 86140; 86200; 86334; 86431; 86480

== ENCOUNTER → 2025-01-17 | Outpatient (CLI) | payer MEDICARE, SELFPAY ==
[2025-01-17 13:13] LABS: PSA,Total- Diagnostic 0.22 ng/mL (0.00-4.00)
== END | disposition home or self-care (01) ==
LOC: MTLAB 10:27
PROVIDERS: PCP Internal Medicine; Referring Provider Urology; Visit Provider Urology
DX: C61 Malignant neoplasm of prostate (principal)
CPT/HCPCS: 36415; 84153